=== PATIENT | male | born 1950 | race Caucasian/White ===

== ENCOUNTER 2021-06-19 07:06 | Day surgery (SDC) | payer MEDICARE ==
[~2021-06-19 07:06] MED LIST: ACETAMINOPHEN TAB 500 MG TAB PO PRN; DEXAMETHASONE SOD PHOSPHATE 4 MG/ML 1 ML VIAL IV ONE; HEPARIN SODIUM,PORCINE/PF 5,000 UNIT/0.5 ML SYRINGE SQ PRN; HYDROmorphone 0.5 MG/0.5 ML SYRINGE IVP PRN; LIDOCAINE 1% (10MG/ML) FOR IV START INTRADERMA PRN; ONDANSETRON 4 MG/2 ML VIAL IVP ONE
[2021-06-19 07:53] VITALS: RESP 16
[2021-06-19 08:01] LABS: Glucose,Whole Blood 101 mg/dL (75-99)
[2021-06-19] MEDS: LACTATED RINGERS 1,000 ML IV SCH ×2 (08:11→08:50)
--- NOTE | 2021-06-19 08:39 | P.GSHP ---
History of Present Illness H&P Date: 06/19/21 Chief Complaint: Incarcerated umbilical hernia 70-year-old male seen in the office in March for incarcerated umbilical hernia. Patient with mild pain. Hernia has gotten gradually larger. No nausea or vomiting. No change in bowel habits. Skin changes colors from red to light pink at times. Past Medical History Past Medical History: Coronary Artery Disease (CAD), Hyperlipidemia, Hypertension, Osteoarthritis (OA) Additional Past Medical History / Comment(s): NECK PAIN History of Any Multi-Drug Resistant Organisms: None Reported Past Surgical History: Coronary Bypass/CABG, Heart Catheterization Additional Past Surgical History / Comment(s): CABG- 1998, CATARACT SURGERY- RIGHT EYE Past Anesthesia/Blood Transfusion Reactions: No Reported Reaction Smoking Status: Former smoker - Past Family History Sister(s) Family Medical History: Cancer Brother(s) Family Medical History: Cancer Medications and Allergies Home Medications Medication Instructions Recorded Confirmed Type Aspirin 325 mg PO DAILY 06/14/21 06/19/21 History Atorvastatin [Lipitor] 40 mg PO HS 06/14/21 06/19/21 History Gabapentin [Neurontin] 300 mg PO HS 06/14/21 06/19/21 History Lisinopril [Zestril] 10 mg PO DAILY 06/14/21 06/19/21 History Metoprolol Tartrate [Lopressor] 50 mg PO BID 06/14/21 06/19/21 History Multivitamins, Thera [Multivitamin 1 tab PO DAILY 06/14/21 06/19/21 History (formulary)] Allergies Allergy/AdvReac Type Severity Reaction Status Date / Time bee venom protein (honey bee) Allergy Swelling, Verified 06/19/21 07:45 RASH Surgical - Exam Vital Signs Temp Pulse Resp BP Pulse Ox 97 F L 57 L 16 156/71 97 06/19/21 07:46 06/19/21 07:46 06/19/21 07:46 06/19/21 07:46 06/19/21 07:46 Physical exam: General: Well-developed, well-nourished HEENT: Normocephalic, sclerae nonicteric Abdomen: Nontender, nondistended, incarcerated umbilical hernia with slightly ischemic overlying umbilical skin, fascial defect not palpable Extremities: No edema Neuro: Alert and oriented Results - Labs Abnormal Lab Results - Last 24 Hours (Table) 06/19/21 Range/Units 07:59 POC Glucose (mg/dL) 101 H (75-99) mg/dL Assessment and Plan (1) Incarcerated umbilical hernia Narrative/Plan: Will proceed with repair incarcerated umbilical hernia with mesh. Risks of bleeding, infection, scarring, recurrence, bowel injury, adhesions, possible need for umbilectomy reviewed. He understands and wishes to proceed. Current Visit: Yes Status: Acute Code(s): K42.0 - UMBILICAL HERNIA WITH OBSTRUCTION, WITHOUT GANGRENE SNOMED Code(s): 952086317
[2021-06-19] MEDS ORDERED: ePHEDrine SULFATE/0.9% NACL/PF 50 MG/5 ML SYRINGE IV ONE (08:47)
[2021-06-19] MEDS ORDERED: PROPOFOL 10 MG/ML 20 ML VIAL IV ONE (08:47)
[2021-06-19] MEDS ORDERED: fentaNYL (PF) 50 MCG/ML 2 ML AMP ONE (08:47)
[2021-06-19] MEDS ORDERED: MIDAZOLAM 2 MG/2 ML VIAL ONE (08:47)
[2021-06-19] MEDS ORDERED: LIDOCAINE 1% INJ 10MG/ML (20 ML MDV) ONE (08:47)
[2021-06-19] MEDS ORDERED: BUPIVACAINE (PF) 0.25% 30 ML VIAL SQ ONE ×2 (09:23→09:45)
--- NOTE | 2021-06-19 10:04 | P.OP ---
Date of Procedure: 06/19/21 Procedure(s) Performed: PREOPERATIVE DIAGNOSIS: Incarcerated umbilical hernia POSTOPERATIVE DIAGNOSIS: Same PROCEDURE: Repair incarcerated umbilical hernia with mesh, partial omentectomy SURGEON: Dr. Awan ANESTHESIA: General OPERATIVE PROCEDURE DETAILS: The patient was placed in the operating table in t he supine position. A left sided periumbilical incision was made using the scalpel. The subcutaneous tissues were dissected bluntly and with cautery. The hernia sac was identified. The umbilical attachments to the fascia were divided using electrocautery. The hernia sac was opened. A large amount of omentum was present within the hernia sac. This could not be reduced. This was removed using the LigaSure device. I then closed the hernia sac. The hernia sac was then inverted. The preperitoneal space was dissected using blunt dissection and electrocautery. The 4.3 cm ventral ex mesh was placed beneath the fascia and sutured in place using trans-fascial 0 Ethibond sutures. The defect was closed using interrupted [id number] 0 Ethibond mattress sutures. The subcutaneous tissues were reapproximated using inverted 2-0 & 3-0 Vicryl sutures. The umbilicus was tacked back down to the fascia using a 2-0 Vicryl suture. The skin was closed using 4-0 Monocryl sutures. Skin glue and sterile dressings were then applied. HERNIA CHARACTERISTICS: Length: 2 cm Width: 2 cm Type: Umbilical TYPE OF MESH USED: Ventral ex or 0.3 cm LOCATION OF MESH: Sub-lay FIXATION: 2-0 Ethibond trans-fascial DISPOSITION: Stable to recovery room
[2021-06-19 10:06] VITALS: TEMP 98
[2021-06-19] MEDS ORDERED: KETOROLAC 15 MG/ML 1 ML VIAL ONE (10:33)
[2021-06-19] MEDS ORDERED: KETOROLAC 15 MG/ML 1 ML VIAL IVP ONE (10:36)
[2021-06-19 11:30] VITALS: PULSE 56
[2021-06-19 11:50] VITALS: BP 130/71
[2021-06-19] MEDS ORDERED: ACETAMINOPHEN TAB 325 MG TAB PO SCH (12:00)
[2021-06-19] MEDS ORDERED: IBUPROFEN 600 MG TAB PO SCH (13:00)
== END 2021-06-19 12:25 | disposition home or self-care (01) ==
LOC: OR 07:06
PROVIDERS: ATTEND Surgery
DX: K42.0 Umbilical hernia with obstruction, without gangrene (principal); Z87.891 Personal history of nicotine dependence; I25.10 Atherosclerotic heart disease of native coronary artery without angina pectoris; I10 Essential (primary) hypertension; E78.5 Hyperlipidemia, unspecified; Z79.899 Other long term (current) drug therapy; M50.30 Other cervical disc degeneration, unspecified cervical region; Z95.1 Presence of aortocoronary bypass graft; Z91.030 Bee allergy status; M19.90 Unspecified osteoarthritis, unspecified site; Z79.82 Long term (current) use of aspirin
CPT/HCPCS: 88302; 49587; C1781; J2250; J1100; J0690; J2405; J2001; J3010; J1885; J2704; J1170; J1644

== ENCOUNTER → 2022-05-29 | Outpatient (CLI) | payer OTHER ==
--- NOTE | 2022-05-29 12:26 | US ---
EXAMINATION TYPE: US duplex aorta DATE OF EXAM: 05/29/2022 COMPARISON: NONE CLINICAL HISTORY: Z89.891 HX OF TOBACCO USE. TECHNIQUE: Multiple sonographic images of the abdominal aorta are obtained. FINDINGS: EXAM MEASUREMENTS: Abdominal Aorta: Proximal: 2.5 x 2.5 cm Mid: 1.8 x 1.6 cm Distal: 1.7 x 1.5 cm Bifurcation: rt, 1.1 x 1.2 cm lt, 1.2 x 1.0 cm [employer] NOTES: Normal caliber aorta, heavily calcified. IMPRESSION: No evidence of abdominal aortic aneurysm.
== END | disposition home or self-care (01) ==
LOC: RADUSWWP 12:03
DX: Z87.891 Personal history of nicotine dependence (principal)
CPT/HCPCS: 93979

== ENCOUNTER 2023-09-25 14:18 | Day surgery (SDC) | payer MEDICARE, OTHER ==
[2023-09-18 11:18] VITALS: BMI 29.7
[~2023-09-25 14:18] MED LIST changes: -ACETAMINOPHEN TAB 500 MG TAB PO PRN; -DEXAMETHASONE SOD PHOSPHATE 4 MG/ML 1 ML VIAL IV ONE; -HEPARIN SODIUM,PORCINE/PF 5,000 UNIT/0.5 ML SYRINGE SQ PRN; -HYDROmorphone 0.5 MG/0.5 ML SYRINGE IVP PRN; +LACTATED RINGERS 1,000 ML IV SCH; +MOXIFLOXACIN HCL 0.5% DROPS 3 ML BTL OP PRN; -ONDANSETRON 4 MG/2 ML VIAL IVP ONE; +TETRACAINE 0.5% OPHTH (PF) DROPS 4 ML BTL OP PRN; +TIMOLOL 0.5% OPHTH DROPS 5 ML BTL OP PRN
[2023-09-25] MEDS: CYCLOPENTOLATE 1% OPHTH SOLN 2 ML BTL OP PRN ×3 (15:19→15:31)
[2023-09-25] MEDS: PHENYLEPHRINE 2.5% OPHTH DRP 2ML OP PRN ×3 (15:22→15:34)
[2023-09-25 15:44] VITALS: TEMP 97.6
[2023-09-25] MEDS ORDERED: fentaNYL (PF) 50 MCG/ML 2 ML AMP ONE (16:29)
[2023-09-25] MEDS ORDERED: MIDAZOLAM 2 MG/2 ML VIAL ONE (16:29)
[2023-09-25] MEDS ORDERED: BALANCED SALT IRRIG SOLN COMB2 15 ML IRRIG.SOLN INTRAOCULA ONE (16:43)
[2023-09-25] MEDS ORDERED: DUOVISC KIT (GREEN BOX) INTRAOCULA ONE (16:43)
[2023-09-25] MEDS ORDERED: LIDOCAINE 1% (PF) 10MG/ML VIAL MISCELLANE ONE (16:43)
[2023-09-25] MEDS ORDERED: EPINEPHrine (PF) 0.3 ML in BALANCED SALT IRRIG SOLN COMB2 500 ML IRRIGATION ONE (16:44)
--- NOTE | 2023-09-25 16:56 | P.OP ---
Date of Procedure: 09/25/23 Preoperative Diagnosis: NS & PSC Postoperative Diagnosis: same Procedure(s) Performed: PIOL, OS Implants: [id number] 18.50 Anesthesia: MAC Surgeon: Nawaf Duong Pathology: none sent Condition: stable Disposition: same day Indications for Procedure: blurry vision Operative Findings: no complications
[2023-09-25 17:10] VITALS: RESP 16
[2023-09-25 17:37] VITALS: BP 157/86; PULSE 54
--- NOTE | 2023-09-26 08:01 | OP ---
OPERATIVE REPORT DATE OF SERVICE : 09/25/2023 PREOPERATIVE DIAGNOSIS: Nuclear sclerosis, posterior subcapsular sclerosis. POSTOPERATIVE DIAGNOSIS: Nuclear sclerosis, left eye. OPERATION: Phacoemulsification of cataract and interocular lens implant, left eye. ESTIMATED BLOOD LOSS: Zero. SPECIMEN TAKEN: None. NARRATIVE: After obtaining the appropriate consent, the patient was brought to the operating room where the patient was placed under cardiac monitoring and prepped and draped in the usual sterile manner. At the 5 o'clock position, a 15-degree super sharp blade was used to create a paracentesis followed by instillation of 1% Xylocaine MPF 50:50 mix with BSS into the anterior chamber. This was followed by DuoVisc viscoelastic to stabilize the anterior chamber. At the 3 o'clock position a self-sealing corneal flap incision was created using 2.8 mm storm keratome. A cystotome was used to initiate a continuous tear capsulorrhexis which was completed with the Utrata forceps. A Binkhorst cannula was used to hydrodissect the lens nucleus followed by hydrodelineation. Phacoemulsification of the lens was performed utilizing phacochop in 35.6 seconds at 10% power. The remaining cortical material was removed using the irrigation aspiration mode followed by additional 1% Xylocaine MPF into the anterior chamber followed by viscoelastic to stabilize the capsular bag. A [employer]ch [employer] MX60E 18.5 diopters posterior chamber lens was placed into the capsular bag without difficulty. The remaining viscoelastic material was removed from the anterior chamber with the irrigation/aspiration. Balanced salt solution was used to normalize the intraocular pressure. The incision was checked for watertight integrity. The patient then received 2 drops of 0.5% timolol followed by 2 drops Vigamox, was lightly patched and shielded in the usual manner. There were no complications from the procedure. The patient tolerated the procedure well and was returned to recovery in good condition. MMODL / IJN: [id number] /
== END 2023-09-25 17:27 | disposition home or self-care (01) ==
LOC: OR 14:18
PROVIDERS: ATTEND Ophthalmology
DX: H25.12 Age-related nuclear cataract, left eye (principal); H25.042 Posterior subcapsular polar age-related cataract, left eye; I25.10 Atherosclerotic heart disease of native coronary artery without angina pectoris; I10 Essential (primary) hypertension; E78.5 Hyperlipidemia, unspecified; Z79.899 Other long term (current) drug therapy; Z98.890 Other specified postprocedural states
CPT/HCPCS: 66984; C1780; J2250; J0171; J3010; J2001

== ENCOUNTER 2023-10-28 15:26 | Emergency (ER) | payer MEDICARE ==
[2023-10-28 15:52] VITALS: TEMP 97.9
--- NOTE | 2023-10-28 16:00 | ED ---
General Adult HPI - General Chief complaint: Neuro Symptoms/Deficit Stated complaint: Weakness Time Seen by Provider: 10/28/23 15:35 Source: patient, RN notes reviewed, old records reviewed Mode of arrival: ambulatory Limitations: no limitations - History of Present Illness Initial comments: This is a 73-year-old male who presents emergency Department with a past medical history significant for hypertension and high cholesterol. Patient states today he was walking at home and then he felt like his left leg had fallen asleep it lasted for about 30 seconds and then it went away per patient states he has no other symptoms and he is at his baseline at this time. Patient states he has some arthritis in his neck but he's never had any lower back problems. Patient denies any pain patient denies any weakness. Patient stated no time was he unable to move or walk. Patient denies any visual disturbances patient denies headache patient denies any facial drooping or slurred speech. Patient states currently he feels asymptomatic - Related Data Home Medications Medication Instructions Recorded Confirmed Aspirin 325 mg PO DAILY 06/14/21 10/28/23 Atorvastatin [Lipitor] 40 mg PO DIRECTED 06/14/21 10/28/23 Gabapentin [Neurontin] 300 mg PO HS 06/14/21 10/28/23 Metoprolol Tartrate [Lopressor] 50 mg PO DIRECTED 06/14/21 10/28/23 Multivitamins, Thera [Multivitamin 1 tab PO DAILY 06/14/21 10/28/23 (formulary)] lisinopriL [Zestril] 10 mg PO DIRECTED 06/14/21 10/28/23 Ketorolac 0.5% Ophth Soln [Acular 1 drop LEFT EYE BID 10/28/23 10/28/23 0.5%] prednisoLONE ACETATE 1% OPHTH 1 drop BOTH EYES BID 10/28/23 10/28/23 [Pred Forte 1%] Allergies Allergy/AdvReac Type Severity Reaction Status Date / Time bee venom protein (honey bee) Allergy Swelling, Verified 10/28/23 16:33 RASH Review of Systems ROS Statement: Those systems with pertinent positive or pertinent negative responses have been documented in the HPI. ROS Other: All systems not noted in ROS Statement are negative. Past Medical History Past Medical History: Coronary Artery Disease (CAD), Hyperlipidemia, Hypertension, Osteoarthritis (OA) Additional Past Medical History / Comment(s): left cataract, NECK PAIN History of Any Multi-Drug Resistant Organisms: None Reported Past Surgical History: Coronary Bypass/CABG, Heart Catheterization Additional Past Surgical History / Comment(s): CABG- 1998, RT CATARACT SURGERY Past Anesthesia/Blood Transfusion Reactions: No Reported Reaction Past Psychological History: No Psychological Hx Reported Smoking Status: Former smoker - Past Family History Sister(s) Family Medical History: Cancer Brother(s) Family Medical History: Cancer General Exam - General Exam Comments Initial Comments: GENERAL: Patient is well-developed and well-nourished. Patient is nontoxic and well- hydrated and is in no acute distress. ENT: Neck is soft and supple. No significant lymphadenopathy is noted. Oropharynx is clear. Moist mucous membranes. Neck has full range of motion without eliciting any pain. EYES: The sclera were anicteric and conjunctiva were pink and moist. Extraocular movements were intact and pupils were equal round and reactive to light. Eyelids were unremarkable. PULMONARY: Unlabored respirations. Good breath sounds bilaterally. No audible rales rhonchi or wheezing was noted. CARDIOVASCULAR: There is a regular rate and rhythm without any murmurs gallops or rubs. Femoral pulses are equal bilaterally ABDOMEN: Soft and nontender with normal bowel sounds. No palpable organomegaly was noted. There is no palpable pulsatile mass. SKIN: Skin is clear with no lesions or rashes and otherwise unremarkable. NEUROLOGIC: Patient is alert and oriented x3. Cranial nerves II through XII are grossly intact. Motor and sensory are also intact. Normal speech, volume and content. Symmetrical smile. Patient's NIH is 0 MUSCULOSKELETAL: Normal extremities with adequate strength and full range of motion. No lower extremity swelling or edema. No calf tenderness. LYMPHATICS: No significant lymphadenopathy is noted PSYCHIATRIC: Normal psychiatric evaluation. Limitations: no limitations Course Vital Signs 10/28/23 10/28/23 15:34 15:50 Temperature 97.9 F Pulse Rate 62 66 Respiratory 16 20 Rate Blood Pressure 181/85 174/79 O2 Sat by Pulse 98 98 Oximetry Medical Decision Making - Medical Decision Making EKG is interpreted by myself. EKG shows a sinus rhythm at 63 bpm [place] interval 273 QRS is under 10 QT interval 390 QTC is 397. Patient's EKG shows some ST segment depression in precordial leads V4 V5 and V6 as well as leads 1 and 2 Was pt. sent in by a medical professional or institution (SIOBHAN Robles, BACK END ENGINEER, urgent care, hospital, or alf...) When possible be specific @ -No Did you speak to anyone other than the patient for history (EMS, parent, family, police, friend...)? What history was obtained from this source @ -No Did you review nursing and triage notes (agree or disagree)? Why? @ -I reviewed and agree with nursing and triage notes Were old charts reviewed (outside hosp., previous admission, EMS record, old EKG, old radiological studies, urgent care reports/EKG's, alf records)? Report findings @ -I reviewed prior charts prior lab work Differential Diagnosis (chest pain, altered mental status, abdominal pain women, abdominal pain men, vaginal bleeding, weakness, fever, dyspnea, syncope, headache, dizziness, GI bleed, back pain, seizure, CVA, palpatations, mental health, musculoskeletal)? @ -Differential CVA Ischemic stroke, hemorrhagic stroke, brain tumor, atypical migraine, Wernicke's encephalopathy, seizure, multiple sclerosis, meningitis, encephalitis, hypoglycemia, Guillain-Strickland, electrolytes disturbance, myasthenia gravis.... This is not meant to be an all-inclusive list EKG interpreted by me (3pts min.). @ -As above X-rays interpreted by me (1pt min.). @ -Chest x-ray shows no acute abnormality CT interpreted by me (1pt min.). @ -CT of the brain shows no acute abnormality U/S interpreted by me (1pt. min.). @ -None done What testing was considered but not performed or refused? (CT, X-rays, U/S, labs)? Why? @ -None What meds were considered but not given or refused? Why? @ -None Did you discuss the management of the patient with other professionals (professionals i.e. SIOBHAN Robles, BACK END ENGINEER, lab, RT, psych nurse, psychosocial rehabilitation counselor, director corporate security, teacher, customer service security officer, case supervisor)? Give summary @ -No Was smoking cessation discussed for >3mins.? @ -No Was critical care preformed (if so, how long)? @ -No Were there social determinants of health that impacted care today? How? (Homelessness, low income, unemployed, alcoholism, drug addiction, transportation, low edu. Level, literacy, decrease access to med. care, shelter, rehab)? @ -No Was there de-escalation of care discussed even if they declined (Discuss DNR or withdrawal of care, Hospice)? DNR status @ -No What co-morbidities impacted this encounter? (DM, HTN, Smoking, COPD, CAD, Cancer, CVA, ARF, Chemo, Hep., AIDS, mental health diagnosis, sleep apnea, morbid obesity)? @ -None Was patient admitted / discharged? Hospital course, mention meds given and route, prescriptions, significant lab abnormalities, going to OR and other pertinent info. @ -Patient's CAT scan x-ray and lab work were all within normal range. Patient remained a symptomatically throughout the ED stay. Patient will follow-up with his primary medical care doctor for further workup. Undiagnosed new problem with uncertain prognosis? @ -No Drug Therapy requiring intensive monitoring for toxicity (Heparin, Nitro, Insulin, Cardizem)? @ -No Were any procedures done? @ -No Diagnosis/symptom? @ -Paresthesias Acute, or Chronic, or Acute on Chronic? @ -Acute Uncomplicated (without systemic symptoms) or Complicated (systemic symptoms)? @ -Complicated Side effects of treatment? @ -No Exacerbation, Progression, or Severe Exacerbation? @ -No Poses a threat to life or bodily function? How? (Chest pain, USA, MD, pneumonia, PE, COPD, DKA, ARF, appy, cholecystitis, CVA, Diverticulitis, Homicidal, Suicidal, threat to staff... and all critical care pts) @ -No - Lab Data Result diagrams: 10/28/23 15:56 10/28/23 15:56 Lab Results 10/28/23 10/28/23 10/28/23 Range/Units 15:56 15:56 15:56 WBC 7.7 (3.8-10.6) k/uL RBC 4.82 (4.30-5.90) m/uL Hgb 14.7 (13.0-17.5) gm/dL Hct 44.1 (39.0-53.0) % MCV 91.5 (80.0-100.0) fL MCH 30.6 (25.0-35.0) pg MCHC 33.4 (31.0-37.0) g/dL RDW 12.6 (11.5-15.5) % Plt Count 148 L (150-450) k/uL MPV 7.8 Neutrophils % 64 % Lymphocytes % 25 % Monocytes % 7 % Eosinophils % 2 % Basophils % 0 % Neutrophils # 4.9 (1.3-7.7) k/uL Lymphocytes # 1.9 (1.0-4.8) k/uL Monocytes # 0.5 (0-1.0) k/uL Eosinophils # 0.1 (0-0.7) k/uL Basophils # 0.0 (0-0.2) k/uL Sodium 142 (137-145) mmol/L Potassium 3.9 (3.5-5.1) mmol/L Chloride 105 (98-107) mmol/L Carbon Dioxide 25 (22-30) mmol/L Anion Gap 12 mmol/L BUN 26 H (9-20) mg/dL Creatinine 1.17 (0.66-1.25) mg/dL Est GFR (CKD-EPI)AfAm 72 (>60 ml/min/1.73 sqM) Est GFR (CKD-EPI)NonAf 62 (>60 ml/min/1.73 sqM) Glucose 105 H (74-99) mg/dL Calcium 9.8 (8.4-10.2) mg/dL Total Bilirubin 0.6 (0.2-1.3) mg/dL AST 28 (17-59) U/L ALT 28 (4-49) U/L Alkaline Phosphatase 105 (38-126) U/L Troponin I 0.015 (0.000-0.034) ng/mL Total Protein 8.1 (6.3-8.2) g/dL Albumin 4.5 (3.5-5.0) g/dL Disposition Clinical Impression: Paresthesias, Degenerative disc disease Disposition: HOME SELF-CARE Instructions (If sedation given, give patient instructions): Paresthesia (ED), Ischemic Stroke (DC) Is patient prescribed a controlled substance at d/c from ED?: No Referrals: [facility],Clinic [Primary Care Provider] - 1-2 days Time of Disposition: 16:58
[2023-10-28 16:10] LABS: Basophils % (A) 0 %; Eosinophils # (A) 0.1 k/uL (0-0.7); Eosinophils % (A) 2 %; HCT 44.1 % (39.0-53.0); HGB 14.7 gm/dL (13.0-17.5); Lymphocytes # (A) 1.9 k/uL (1.0-4.8); Lymphocytes % (A) 25 %; MCH 30.6 pg (25.0-35.0); MCHC 33.4 g/dL (31.0-37.0); MCV 91.5 fL (80.0-100.0); Mean Platelet Volume 7.8; Monocytes # (A) 0.5 k/uL (0-1.0); Monocytes % (A) 7 %; Neutrophils # (A) 4.9 k/uL (1.3-7.7); Neutrophils % (A) 64 %; Platelet Count 148 k/uL (150-450); RBC 4.82 m/uL (4.30-5.90); RDW 12.6 % (11.5-15.5); WBC 7.7 k/uL (3.8-10.6)
--- NOTE | 2023-10-28 16:11 | XR ---
EXAMINATION TYPE: XR lumbosacral spine min 4V DATE OF EXAM: 10/28/2023 4:06 PM CLINICAL INDICATION:Male, 73 years old with history of Left leg numbness; [facility] COMPARISON: None TECHNIQUE: XR lumbosacral spine min 4V - Frontal, lateral , bilateral oblique and coned in L5-S1 late ral views of the spine. FINDINGS: No evidence of any acute osseous pathology. No evidence of loss of vertebral body height i s seen. There is normal alignment of the lumbar vertebral bodies. Mild scattered disc space narrowing . Multilevel marginal osteophyte formation throughout the visualized spine. There is facet joint arth ropathy throughout the spine. Scattered at least mild neural foraminal stenosis. IMPRESSION: 1. No acute fracture. 2. Mild multilevel disc degeneration.
--- NOTE | 2023-10-28 16:23 | CT ---
EXAMINATION TYPE: CT brain wo con CT DLP: 1142.1 mGycm, Automated exposure control for dose reduction was used. DATE OF EXAM: 10/28/2023 4:14 PM COMPARISON: None. CLINICAL INDICATION:Male, 73 years old with history of Neuro deficit, acute, stroke suspected, weakne ss TECHNIQUE: Brain: Axial CT images of the brain were obtained with coronal and sagittal reformats created and rev iewed. Contrast used: None. Oral contrast used: None. FINDINGS: Brain: Extra-axial spaces: No abnormal extra-axial fluid collections. Ventricular system: Dilatation in proportion to cerebral atrophy. Cerebral parenchyma: Cerebral atrophy. No acute intraparenchymal hemorrhage or mass effect. The caal -white junction is well differentiated. Scattered hypoattenuating areas are seen within the white mat ter. Cerebellum: Unremarkable. Mass effect: No evidence of midline shift. Intracranial vasculature: Atherosclerotic calcifications of the intracranial vessels. Soft tissues: Normal. Calvarium/osseous structures: No depressed skull fracture. Paranasal sinuses and mastoid air cells: Mild scattered paranasal sinus disease. Visualized orbits: Orbital contents are intact. IMPRESSION: 1. No acute intracranial process. 2. Nonspecific white matter changes, likely secondary to chronic small vessel ischemic disease.
[2023-10-28 16:31] LABS: ALT 28 U/L (4-49); AST 28 U/L (17-59); African American GFR (CKD) 72 (>60 ml/min/1.73 sqM); Albumin 4.5 g/dL (3.5-5.0); Alkaline Phosphatase 105 U/L (38-126); Anion Gap 12 mmol/L; Blood Urea Nitrogen 26 mg/dL (9-20); Calcium 9.8 mg/dL (8.4-10.2); Carbon Dioxide 25 mmol/L (22-30); Chloride 105 mmol/L (98-107); Glucose 105 mg/dL (74-99); Non-African American GFR(CKD) 62 (>60 ml/min/1.73 sqM); Potassium 3.9 mmol/L (3.5-5.1); Sodium 142 mmol/L (137-145); Total Bilirubin 0.6 mg/dL (0.2-1.3); Total Protein 8.1 g/dL (6.3-8.2)
[2023-10-28 17:21] VITALS: BP 136/78; PULSE 80; RESP 18
== END 2023-10-28 17:18 | disposition home or self-care (01) ==
LOC: EC 15:26
DX: M51.36 Other intervertebral disc degeneration, lumbar region (principal); R20.2 Paresthesia of skin; I10 Essential (primary) hypertension; I25.10 Atherosclerotic heart disease of native coronary artery without angina pectoris; E78.5 Hyperlipidemia, unspecified; M19.90 Unspecified osteoarthritis, unspecified site; Z79.82 Long term (current) use of aspirin; Z79.899 Other long term (current) drug therapy; Z79.1 Long term (current) use of non-steroidal anti-inflammatories (NSAID); Z87.891 Personal history of nicotine dependence; Z91.030 Bee allergy status; Z95.1 Presence of aortocoronary bypass graft
CPT/HCPCS: 36415; 70450; 72110; 80053; 84484; 85025; 93005; 99285

== ENCOUNTER 2023-11-17 12:28 | Emergency (ER) | payer MEDICARE, OTHER ==
[2023-11-17 12:40] VITALS: TEMP 98.6
[2023-11-17 12:54] LABS: Basophils % (A) 1 %; Eosinophils # (A) 0.2 k/uL (0-0.7); Eosinophils % (A) 2 %; HCT 42.1 % (39.0-53.0); HGB 14.3 gm/dL (13.0-17.5); Lymphocytes # (A) 1.7 k/uL (1.0-4.8); Lymphocytes % (A) 25 %; MCH 30.7 pg (25.0-35.0); MCV 90.4 fL (80.0-100.0); Mean Platelet Volume 7.9; Monocytes # (A) 0.4 k/uL (0-1.0); Monocytes % (A) 6 %; Neutrophils # (A) 4.4 k/uL (1.3-7.7); Neutrophils % (A) 65 %; Platelet Count 130 k/uL (150-450); RBC 4.66 m/uL (4.30-5.90); RDW 12.4 % (11.5-15.5); WBC 6.7 k/uL (3.8-10.6)
--- NOTE | 2023-11-17 12:54 | XR ---
EXAMINATION TYPE: XR chest 2V DATE OF EXAM: 11/17/2023 COMPARISON: None HISTORY: Weakness TECHNIQUE: Frontal and lateral views of the chest are obtained. FINDINGS: There is an prior CABG surgery. Heart size is normal the pulmonary vasculature is not congested. The lungs are clear and there is no abnormal airspace/consolidative capacity or interstitial opacity. There is no pleural effusion or pneumothorax. No focal osseous lesions are seen. IMPRESSION: 1. CABG surgery. 2. No acute cardiopulmonary disease.
[2023-11-17 13:02] LABS: Partial Thromboplastin Time 25.3 sec (22.0-30.0); Prothrombin Time 11.4 sec (10.0-12.5)
[2023-11-17 13:07] LABS: ALT 29 U/L (4-49); AST 27 U/L (17-59); African American GFR (CKD) 76 (>60 ml/min/1.73 sqM); Albumin 4.3 g/dL (3.5-5.0); Alkaline Phosphatase 97 U/L (38-126); Anion Gap 10 mmol/L; Blood Urea Nitrogen 23 mg/dL (9-20); Calcium 9.4 mg/dL (8.4-10.2); Carbon Dioxide 25 mmol/L (22-30); Chloride 105 mmol/L (98-107); Glucose 132 mg/dL (74-99); Non-African American GFR(CKD) 66 (>60 ml/min/1.73 sqM); Potassium 3.8 mmol/L (3.5-5.1); Sodium 140 mmol/L (137-145); Total Bilirubin 0.8 mg/dL (0.2-1.3); Total Protein 7.5 g/dL (6.3-8.2)
--- NOTE | 2023-11-17 13:23 | ED ---
General Adult HPI - General Chief complaint: Weakness Stated complaint: high blood pressure Time Seen by Provider: 11/17/23 13:06 Source: patient, family Mode of arrival: ambulatory Limitations: no limitations - History of Present Illness Initial comments: This patient is 73-year-old man who presents with complaint that his blood pressure is high. The patient has history of hypertension, taking lisinopril and metoprolol. He states he has been compliant with his medications. Patient's states that he has been feeling generalized weakness and fatigue this morning and so they checked his blood pressure. They do not regularly check blood pressures. Blood pressure was high and when it was rechecked it kept going up. Patient denies having focal neurologic symptoms. No headache. No change in sensory function. Onset/Timin -: days(s) Severity scale (1-10): 0 Consistency: constant Improves with: none Worsens with: none Associated Symptoms: weakness Treatments Prior to Arrival: none - Related Data Home Medications Medication Instructions Recorded Confirmed Aspirin 325 mg PO DAILY 06/14/21 10/28/23 Atorvastatin [Lipitor] 40 mg PO DIRECTED 06/14/21 10/28/23 Gabapentin [Neurontin] 300 mg PO HS 06/14/21 10/28/23 Metoprolol Tartrate [Lopressor] 50 mg PO DIRECTED 06/14/21 10/28/23 Multivitamins, Thera [Multivitamin 1 tab PO DAILY 06/14/21 10/28/23 (formulary)] lisinopriL [Zestril] 10 mg PO DIRECTED 06/14/21 10/28/23 Ketorolac 0.5% Ophth Soln [Acular 1 drop LEFT EYE BID 10/28/23 10/28/23 0.5%] prednisoLONE ACETATE 1% OPHTH 1 drop BOTH EYES BID 10/28/23 10/28/23 [Pred Forte 1%] Allergies Allergy/AdvReac Type Severity Reaction Status Date / Time bee venom protein (honey bee) Allergy Swelling, Verified 10/28/23 16:33 RASH Review of Systems ROS Statement: Those systems with pertinent positive or pertinent negative responses have been documented in the HPI. ROS Other: All systems not noted in ROS Statement are negative. Constitutional: Reports: weakness. Denies: fever, chills Eyes: Denies: vision change ENT: Denies: hearing loss Respiratory: Denies: cough, dyspnea Cardiovascular: Denies: chest pain, palpitations, orthopnea, syncope Gastrointestinal: Denies: abdominal pain, nausea, vomiting Genitourinary: Denies: dysuria, hematuria Musculoskeletal: Denies: back pain Skin: Denies: rash Neurological: Denies: headache, weakness, numbness, paresthesias, confusion Past Medical History Past Medical History: Coronary Artery Disease (CAD), Hyperlipidemia, Hyp ertension, Osteoarthritis (OA) Additional Past Medical History / Comment(s): left cataract, NECK PAIN History of Any Multi-Drug Resistant Organisms: None Reported Past Surgical History: Coronary Bypass/CABG, Heart Catheterization Additional Past Surgical History / Comment(s): CABG- 1998, [facility] CATARACT SURGERY Past Anesthesia/Blood Transfusion Reactions: No Reported Reaction Past Psychological History: No Psychological Hx Reported Smoking Status: Former smoker - Past Family History Sister(s) Family Medical History: Cancer Brother(s) Family Medical History: Cancer General Exam Limitations: no limitations General appearance: alert, in no apparent distress Head exam: Present: atraumatic, normocephalic Eye exam: Present: normal appearance. Absent: scleral icterus, conjunctival injection ENT exam: Present: normal oropharynx Neck exam: Present: normal inspection Respiratory exam: Present: normal lung sounds bilaterally. Absent: respiratory distress, wheezes, rales, rhonchi, stridor Cardiovascular Exam: Present: regular rate, normal rhythm, normal heart sounds. Absent: systolic murmur, diastolic murmur, rubs, gallop GI/Abdominal exam: Present: soft. Absent: distended, tenderness, guarding, rebound, rigid, mass Extremities exam: Present: normal inspection, normal capillary refill. Absent: pedal edema, calf tenderness Back exam: Present: normal inspection. Absent: CVA tenderness (R), CVA tenderness (L) Neurological exam: Present: alert, oriented X3, CN II-XII intact. Absent: motor sensory deficit Skin exam: Present: warm, dry, intact, normal color. Absent: rash Course Vital Signs 11/17/23 11/17/23 11/17/23 12:30 13:35 13:38 Temperature 98.6 F Pulse Rate 56 L 57 L 60 Respiratory 16 20 12 Rate Blood Pressure 203/80 152/76 152/76 O2 Sat by Pulse 97 98 97 Oximetry 01/11/17/23 11/17/23 14:00 14:30 15:00 Temperature Pulse Rate 56 L 54 L 54 L Respiratory 11 L 10 L 12 Rate Blood Pressure 149/70 140/64 151/70 O2 Sat by Pulse 96 97 96 Oximetry 11/17/23 11/17/23 11/17/23 15:30 16:00 16:42 Temperature 98.6 F Pulse Rate 51 L Respiratory 12 Rate Blood Pressure 150/74 139/65 O2 Sat by Pulse 97 98 Oximetry EKG Findings - EKG Comments: EKG Findings:: There are inferior ST segment depression that are present on the comparison ECG. - EKG Results: EKG: interpreted by ERMD, sinus rhythm EKG shows: bradycardia Medical Decision Making - Medical Decision Making The patient had chest x-ray which I interpreted as negative for acute infiltrate, pneumothorax, congestive heart failure Was pt. sent in by a medical professional or institution (, PA, ENGINEERING TECHNOLOGY INSTRUCTOR, urgent care, hospital, or snf...) When possible be specific @ -[No] Did you speak to anyone other than the patient for history (EMS, parent, family, police, friend...)? What history was obtained from this source @ -[No] Did you review nursing and triage notes (agree or disagree)? Why? @ -[I reviewed and agree with nursing and triage notes] Were old charts reviewed (outside hosp., previous admission, EMS record, old EKG, old radiological studies, urgent care reports/EKG's, snf records)? Report findings @ -[No old charts were reviewed] Differential Diagnosis (chest pain, altered mental status, abdominal pain women, abdominal pain men, vaginal bleeding, weakness, fever, dyspnea, syncope, headache, dizziness, GI bleed, back pain, seizure, CVA, palpatations, mental health, musculoskeletal)? @ -[Differential Weakness: Hypoglycemia, shock, sepsis, hyponatremia, anemia, infection, NV, ETOH, adverse medicine reaction, overdose, stroke, this is not meant to be an all-inclusive list. EKG interpreted by me (3pts min.). @ -[Interpreted As above] X-rays interpreted by me (1pt min.). @ -[I interpreted as above CT interpreted by me (1pt min.). @ -[None done] U/S interpreted by me (1pt. min.). @ -[None done] What testing was considered but not performed or refused? (CT, X-rays, U/S, labs)? Why? @ -[None] What meds were considered but not given or refused? Why? @ -[None] Did you discuss the management of the patient with other professionals (professionals i.e. , PA, ENGINEERING TECHNOLOGY INSTRUCTOR, lab, RT, psych nurse, dialysis social worker, assistant professor of geography, teacher, sewage reticulation drafting officer, case resource manager)? Give summary @ -[No] Was smoking cessation discussed for >3mins.? @ -[No] Was critical care preformed (if so, how long)? @ -[No] Were there social determinants of health that impacted care today? How? (Homelessness, low income, unemployed, alcoholism, drug addiction, transportation, low edu. Level, literacy, decrease access to med. care, mcc, rehab)? @ -[No] Was there de-escalation of care discussed even if they declined (Discuss DNR or withdrawal of care, Hospice)? DNR status @ -[No] What co-morbidities impacted this encounter? (DM, HTN, Smoking, COPD, CAD, Cancer, CVA, ARF, Chemo, Hep., AIDS, mental health diagnosis, sleep apnea, morbid obesity)? @ -[None] Was patient admitted / discharged? Hospital course, mention meds given and rout e, prescriptions, significant lab abnormalities, going to OR and other pertinent info. @ -Patient is 73-year-old man presenting to have evaluation for some mild generalized weakness and also for elevated blood pressure. The physical exam and workup are consistent with mild dehydration. Patient is given fluids and is feeling better here in emergency department. We discussed appropriate further care and follow-up as well as return parameters. Undiagnosed new problem with uncertain prognosis? @ -[No] Drug Therapy requiring intensive monitoring for toxicity (Heparin, Nitro, Insulin, Cardizem)? @ -[No] Were any procedures done? @ -[No] Diagnosis/symptom? @ -[Acute hypertension Mild dehydration Acute, or Chronic, or Acute on Chronic? @ -[Acute Uncomplicated (without systemic symptoms) or Complicated (systemic symptoms)? @ -[Uncomplicated Side effects of treatment? @ -[No] Exacerbation, Progression, or Severe Exacerbation? @ -[No] Poses a threat to life or bodily function? How? (Chest pain, USA, NV, pneumonia, PE, COPD, DKA, ARF, appy, cholecystitis, CVA, Diverticulitis, Homicidal, Suicidal, threat to staff... and all critical care pts) @ -[No] - Lab Data Result diagrams: 11/17/23 12:30 11/17/23 12:30 Lab Results 11/17/23 11/17/23 11/17/23 Range/Units 12:30 12:30 12:30 WBC 6.7 (3.8-10.6) k/uL RBC 4.66 (4.30-5.90) m/uL Hgb 14.3 (13.0-17.5) gm/dL Hct 42.1 (39.0-53.0) % MCV 90.4 (80.0-100.0) fL MCH 30.7 (25.0-35.0) pg MCHC 34.0 (31.0-37.0) g/dL RDW 12.4 (11.5-15.5) % Plt Count 130 L (150-450) k/uL MPV 7.9 Neutrophils % 65 % Lymphocytes % 25 % Monocytes % 6 % Eosinophils % 2 % Basophils % 1 % Neutrophils # 4.4 (1.3-7.7) k/uL Lymphocytes # 1.7 (1.0-4.8) k/uL Monocytes # 0.4 (0-1.0) k/uL Eosinophils # 0.2 (0-0.7) k/uL Basophils # 0.0 (0-0.2) k/uL PT 11.4 (10.0-12.5) sec INR 1.0 (<1.2) APTT 25.3 (22.0-30.0) sec Sodium 140 (137-145) mmol/L Potassium 3.8 (3.5-5.1) mmol/L Chloride 105 (98-107) mmol/L Carbon Dioxide 25 (22-30) mmol/L Anion Gap 10 mmol/L BUN 23 H (9-20) mg/dL Creatinine 1.12 (0.66-1.25) mg/dL Est GFR (CKD-EPI)AfAm 76 (>60 ml/min/1.73 sqM) Est GFR (CKD-EPI)NonAf 66 (>60 ml/min/1.73 sqM) Glucose 132 H (74-99) mg/dL Calcium 9.4 (8.4-10.2) mg/dL Total Bilirubin 0.8 (0.2-1.3) mg/dL AST 27 (17-59) U/L ALT 29 (4-49) U/L Alkaline Phosphatase 97 (38-126) U/L Troponin I (0.000-0.034) ng/mL Total Protein 7.5 (6.3-8.2) g/dL Albumin 4.3 (3.5-5.0) g/dL 11/17/23 Range/Units 12:30 WBC (3.8-10.6) k/uL RBC (4.30-5.90) m/uL Hgb (13.0-17.5) gm/dL Hct (39.0-53.0) % MCV (80.0-100.0) fL MCH (25.0-35.0) pg MCHC (31.0-37.0) g/dL RDW (11.5-15.5) % Plt Count (150-450) k/uL MPV Neutrophils % % Lymphocytes % % Monocytes % % Eosinophils % % Basophils % % Neutrophils # (1.3-7.7) k/uL Lymphocytes # (1.0-4.8) k/uL Monocytes # (0-1.0) k/uL Eosinophils # (0-0.7) k/uL Basophils # (0-0.2) k/uL PT (10.0-12.5) sec INR (<1.2) APTT (22.0-30.0) sec Sodium (137-145) mmol/L Potassium (3.5-5.1) mmol/L Chloride (98-107) mmol/L Carbon Dioxide (22-30) mmol/L Anion Gap mmol/L BUN (9-20) mg/dL Creatinine (0.66-1.25) mg/dL Est GFR (CKD-EPI)AfAm (>60 ml/min/1.73 sqM) Est GFR (CKD-EPI)NonAf (>60 ml/min/1.73 sqM) Glucose (74-99) mg/dL Calcium (8.4-10.2) mg/dL Total Bilirubin (0.2-1.3) mg/dL AST (17-59) U/L ALT (4-49) U/L Alkaline Phosphatase (38-126) U/L Troponin I <0.012 (0.000-0.034) ng/mL Total Protein (6.3-8.2) g/dL Albumin (3.5-5.0) g/dL Disposition Clinical Impression: Hypertension Disposition: HOME SELF-CARE Condition: Good Instructions (If sedation given, give patient instructions): Hypertension (ED) Is patient prescribed a controlled substance at d/c from ED?: No Referrals: [facility],Clinic [Primary Care Provider] - 1-2 days
[2023-11-17] MEDS ORDERED: cloNIDine HCL 0.2 MG TAB PO STA (13:25)
[2023-11-17] MEDS ORDERED: SODIUM CHLORIDE 0.9% 500 ML 500 ML IV STA (14:05)
[2023-11-17 16:07] VITALS: BP 139/65; PULSE 51; RESP 12
== END 2023-11-17 16:46 | disposition home or self-care (01) ==
LOC: EC 12:28
DX: I10 Essential (primary) hypertension (principal); I25.10 Atherosclerotic heart disease of native coronary artery without angina pectoris; E78.5 Hyperlipidemia, unspecified; M19.90 Unspecified osteoarthritis, unspecified site; Z79.1 Long term (current) use of non-steroidal anti-inflammatories (NSAID); Z79.82 Long term (current) use of aspirin; Z79.899 Other long term (current) drug therapy; Z87.891 Personal history of nicotine dependence; Z91.030 Bee allergy status; Z95.1 Presence of aortocoronary bypass graft
CPT/HCPCS: 36415; 71046; 80053; 84484; 85025; 85610; 85730; 93005; 96360; 99285

== ENCOUNTER 2024-01-01 08:54 | Day surgery (SDC) | payer MEDICARE, OTHER ==
[~2024-01-01 08:54] MED LIST changes: +ALPRAZolam 0.25 MG TAB PO PRN; +ALPRAZolam 0.5 MG TAB PO PRN; +ASPIRIN 325 MG TAB PO STA; +ATORVASTATIN 80 MG TAB PO STA; +HEPARIN SODIUM,PORCINE (1 ML) 2,500 UNIT in SODIUM CHLORIDE 0.9% 250 ML IRRIGATION PRN; +HEPARIN SODIUM,PORCINE 10,000 UNIT in SODIUM CHLORIDE 0.9% 1,000 ML IRRIGATION PRN; -LACTATED RINGERS 1,000 ML IV SCH; -LIDOCAINE 1% (10MG/ML) FOR IV START INTRADERMA PRN; -MOXIFLOXACIN HCL 0.5% DROPS 3 ML BTL OP PRN; +NITROGLYCERIN SL TABS 0.4 MG TAB SUBLINGUAL PRN; +SODIUM CHLORIDE 0.9% 1,000 ML in EMPTY BAG 1 BAG IV SCH; -TETRACAINE 0.5% OPHTH (PF) DROPS 4 ML BTL OP PRN; -TIMOLOL 0.5% OPHTH DROPS 5 ML BTL OP PRN
[2024-01-01] MEDS: SODIUM CHLORIDE 0.9% 1,000 ML IV ONE (09:04)
[2024-01-01 09:53] VITALS: RESP 16; TEMP 98.1
[2024-01-01] MEDS: HYDROcodone/APAP 7.5-325MG 1 EACH TAB PO ONE (13:31)
[2024-01-01] MEDS: MIDAZOLAM 2 MG/2 ML VIAL IVP ONE ×2 (13:55→13:59)
[2024-01-01] MEDS: fentaNYL (PF) 50 MCG/1 ML VIAL IVP ONE (13:55)
[2024-01-01] MEDS: HEPARIN SODIUM 1,000 UN/ML (10ML VL) IVP ONE (14:19)
[2024-01-01] MEDS: IOPAMIDOL-370 100ML BTL INTRATHECA ONE (15:13)
[2024-01-01] MEDS ORDERED: RX INFO: IV CONTRAST WAS GIVEN 1 EACH MISC MISCELLANE PRN (15:42)
--- NOTE | 2024-01-01 15:42 | P.CARDCATH ---
Date of Procedure: 01/01/24 Description of Procedure: DIAGNOSTIC CORONARY ANGIOGRAPHY and LEFT HEART CATH REPORT PROCEDURES PERFORMED: Left heart catheterization Selective coronary angiography SVG graft injection JONES graft injection Ascending aortogram Moderate conscious sedation 68 mins Ultrasound assisted left radial access Attempted ultrasound assisted right common femoral access but failed due to heavy calcification. INDICATION: Substernal chest pain, dyspnea on exertion and abnormal stress test. 73-year-old with past medical history of CABG in 1998 at [facility]. He has not seen a associate quality engineer in more than 10 years. He presented to cardiology clinic with dyspnea on exertion and substernal chest heaviness symptoms mostly with exertion. For this he had a nuclear stress test done which showed inferior inferolateral wall reversible perfusion defect. For this he was scheduled for an outpatient heart catheterization. CONSENT: I have explained the procedural steps of above-mentioned procedures in layman's terms to the patient. I discussed the risks (including but not limited to stroke, emergent vascular or cardiac surgery or ), benefits and alternative therapies for the above-mentioned procedure. I discussed the risks of sedation/analgesia and blood product administration (if indicated). The patient has indicated understanding and acceptance of these risks. Conscious Sedation: Patient's ECG, heart rate, blood pressure, pulse oximetry were monitored throughout the duration of procedure under my direct supervision. [2] mg Versed and [50] mg Fentanyl were used for induction of moderate conscious sedation. Total duration of moderate concious sedation 68 minutes. PROCEDURE: After explaining the risks, benefits and alternatives of the above mentioned procedures in detail to the patient, informed consent was obtained. Patient was taken to the catheterization lab, prepped and draped in usual sterile fashion using universal precuations. Barbow and sima test were performed to confirm adequate perfusion to fingers. Ultrasound was used to identify the right common femoral artery. There was significant calcification noticed in the artery. 1% lidocaine was infiltrated over the right common femoral artery. A micropuncture needle was utilized to obtain the access. Using micropuncture needle we had very poor backflow and due to heavy calcification, we decided not to proceed with femoral access. No sheath was advanced in the femoral artery. Ultrasound was utilized to identify the left common femoral artery. Left common femoral artery was also heavily calcified so we decided not to proceed with left common femoral access. Ultrasound was used to identify the left radial artery. 1% lidocaine was infiltrated over the left radial artery. A 6-Korean sheath was placed and secured in the left radial artery using modified Seldinger technique. The sheath was flushed and 5 mg verapamil was administered intra-arterially. J tipped wire was advanced under fluoroscopic guidance. Once the wire tip reached aortic root 4500 units of IV heparin was given. Over the wire a JL 4 diagnostic catheter was advanced. The wire was removed and the catheter was flushed. The catheter was manipulated to selectively engage the left coronary ostium. Left coronary angiogram was performed in different angiographic projections. This catheter was exchanged over the wire for a JR4 diagnostic catheter. The wire was removed and the catheter was flushed. Catheter was manipulated to selectively engage the right coronary ostium. Right coronary angiogram was performed. The catheter was manipulated to disengage from the right coronary ostium and engage the SVG graft. SVG graft angiogram was performed. The catheter was manipulated to look for any other grafts from the aortic root and ascending aorta. We were not able to find any further grafts. The catheter was manipulated to enter the left subclavian artery and then manipulated to selectively engage the JONES artery. JONES artery was engaged and selective angiogram was performed in different angiographic injections. The catheter was disengaged from JONES artery and the wire was advanced to the ascending aorta. The catheter was exchanged for a pigtail catheter. The pigtail catheter was flushed. A power injector was used at the setting of 15 mL/s for 30 mL. Aortic root angiogram was performed to look for any missed grafts. The pigtail catheter was removed over the wire. Radial sheath was flushed. The radial sheath was removed and a TR band was placed with excellent patent hemostasis was achieved. The patient tolerated the procedure well. Patient was transported back to the post catheterization holding area in stable condition. Angiographic images were reviewed in detail. HEMODYNAMICS: Aortic Pressure: 140/50 mmHg. LV pressure: 142/5 mmHg. LVEDP 20 mmHg. There was no significant gradient across the aortic valve. Left subclavian pressures 154 /61 mmHg SELECTIVE CORONARY ARTERIOGRAPHY: LEFT MAIN: The left main is a large caliber vessel which trifurcates into the LAD, Ramus and circumflex. Left main appears angiographically normal. RAMUS INTERMEDIUS: Ostial and proximal ramus has 80 to 90% disease. Ramus is a small vessel with 2 mm caliber. LEFT ANTERIOR DESCENDING CORONARY ARTERY: LAD is 100% occluded at the ostium. Distal LAD is supplied by JONES graft with good distal runoff. Distal LAD supplies the apex and give filling collaterals to fill diagonal branches retrogradely. LEFT CIRCUMFLEX CORONARY ARTERY: It is co-dominant vessel. Left circumflex is large caliber. Proximal and mid LCx has mild luminal irregularities in 20% range. It gives rise to a small caliber OM1 and OM 2 which has severe calcific disease. LCx gives rise to bridging collaterals which fills the PDA and PL branches and fills the RCA retrogradely. RIGHT CORONARY ARTERY: 100% occluded in proximal segment. RCA fills retrogradely from left to right bridging collaterals. Bypass grafts SVG to PDA: 100% occluded JONES to LAD: Widely patent with good distal runoff. There is no retrograde flow in proximal and LAD. IMPRESSION: 1. 100% ostial LAD, 100% proximal RCA stenosis 2. 80 to 90% proximal ramus disease but small caliber vessel not amenable for intervention 3. Mild diffuse disease in LCx. Diffuse OM disease but small caliber vessels. 4. Left to right bridging from LCx collaterals filling the PDA and RCA retrogradely 5. Patent JONES to LAD with good distal runoff 6. 100% occluded SVG to PDA PLAN: Aggressive risk factor modification per most recent ACC/AHA guidelines. 100 cc fluids for 4 hours Discharge home in 4 hours Continue all medications Which includes aspirin 81 mg atorvastatin 40 mg, metoprolol 50 mg, lisinopril hydrochlorothiazide 20/25 mg, amlodipine 5 mg. Add Imdur 15 mg daily Follow-up in the office in 1-2 weeks. Performing Physician Claude Garcia MD, FACC, RPVI Thank you for allowing [facility] to participate in this patient's care. Feel free to reach out in case of any followup questions.
[2024-01-01] MEDS ORDERED: SODIUM CHLORIDE 0.9% 1,000 ML IV SCH (15:45)
[2024-01-01 18:32] VITALS: BP 139/69; PULSE 57
== END 2024-01-01 18:03 | disposition home or self-care (01) ==
LOC: CATHCVL 08:54
PROVIDERS: ATTEND Student in an Organized Health Care Education/Training Program
DX: I25.10 Atherosclerotic heart disease of native coronary artery without angina pectoris (principal); I10 Essential (primary) hypertension; E78.5 Hyperlipidemia, unspecified; Z79.82 Long term (current) use of aspirin; Z79.899 Other long term (current) drug therapy
CPT/HCPCS: 93459; 93567; 76937; 99152; 99153 ×3; C1769 ×2; C1894 ×2; J2250; J1644; Q9967; J3010

== ENCOUNTER → 2024-02-05 | Outpatient (CLI) | payer OTHER ==
[2024-02-05 13:10] LABS: African American GFR (CKD) 82 (>60 ml/min/1.73 sqM); Blood Urea Nitrogen 24 mg/dL (9-20); Non-African American GFR(CKD) 71 (>60 ml/min/1.73 sqM)
--- NOTE | 2024-02-05 18:11 | CT ---
EXAMINATION TYPE: CT angio neck DATE OF EXAM: 02/05/2024 HISTORY: CAROTID STENOSIS SCREENING COMPARISON: None CT DLP: 430.60 mGycm. Automated Exposure Control for Dose Reduction was Utilized. TECHNIQUE: CTA scan of the neck is performed with IV Contrast, patient injected with 80ml mL of Isov ue 370, axial images are obtained, coronal and sagittal reformatted images are reviewed. Three-D amol nstructed images are created on an independent workstation and reviewed. Source images are reviewed. FINDINGS: Carotid/Vascular Structures: There is a 3 vessel arch. Common carotid arteries bifurcate into internal and external carotid arteries. There is severe stenos is of 87% at the origin of the right internal carotid artery due to calcification. There is moderate stenosis in the proximal left internal carotid artery of 58%. Vertebral arteries are codominant. Internal carotid arteries and vertebral arteries are patent to the skull base. Other: Dense coronary present. Facet hypertrophy is present within the cervical spine. IMPRESSION: 1. Severe stenosis of 87% right internal carotid artery origin and moderate stenosis left proximal in ternal carotid artery. NASCET criteria was used in interpretation of this exam?
== END | disposition home or self-care (01) ==
LOC: RADCTMAIN 12:15
PROVIDERS: ATTEND Surgery
DX: I65.23 Occlusion and stenosis of bilateral carotid arteries (principal)
CPT/HCPCS: 82565; 84520; 70498; 36415; Q9967

== ENCOUNTER 2024-03-08 21:58 | Emergency (ER) | payer OTHER ==
[2024-03-08 22:23] VITALS: BP 163/81; PULSE 63; RESP 18; TEMP 98.2
--- NOTE | 2024-03-08 22:37 | ED ---
General Adult HPI - General Chief complaint: Upper Respiratory Infection Stated complaint: Medicaton rxn-Coughing blood Time Seen by Provider: 03/08/24 22:19 Source: patient Mode of arrival: ambulatory Limitations: no limitations - History of Present Illness Initial comments: This patient is a 73-year-old man who presents to have evaluation after he had expectorated some blood. The patient states that he on 2 occasions had tried to clear his chest, he then coughed and noticed that there were some small streaks of blood in the sputum. He states that he is concerned because he had recently started on Plavix. The patient is otherwise denying any respiratory or chest symptoms. He denies congestion or cough. No sore throat. No dyspnea or chest pain. Patient denies any other symptoms suggestive of anemia. No palpitations, orthostatic symptoms, no lightheadedness, syncope. Onset/Timin -: days(s) Location: chest Severity scale (1-10): 0 Improves with: none Worsens with: none Associated Symptoms: cough Treatments Prior to Arrival: other (Plavix) - Related Data Home Medications Medication Instructions Recorded Confirmed Atorvastatin [Lipitor] 40 mg PO HS 06/14/21 03/20/24 Multivitamins, Thera [Multivitamin 1 tab PO DAILY 06/14/21 03/20/24 (formulary)] Clopidogrel [Plavix] 75 mg PO DAILY 03/17/24 03/20/24 Gabapentin [Neurontin] 300 mg PO HS 03/17/24 03/20/24 Aspirin EC [Ecotrin Low Dose] 81 mg PO DAILY 03/20/24 03/20/24 PARoxetine HCL [Paxil] 10 mg PO DAILY 03/20/24 03/20/24 Previous Rx's Medication Instructions Recorded Tamsulosin [Flomax] 0.4 mg PO DAILY #60 cap 03/20/24 Allergies Allergy/AdvReac Type Severity Reaction Status Date / Time bee venom protein (honey bee) Allergy Swelling, Verified 03/17/24 13:30 RASH Review of Systems ROS Statement: Those systems with pertinent positive or pertinent negative responses have been documented in the HPI. ROS Other: All systems not noted in ROS Statement are negative. Constitutional: Denies: fever, chills, weakness Respiratory: Reports: hemoptysis. Denies: cough, dyspnea Cardiovascular: Denies: chest pain, palpitations, edema Gastrointestinal: Denies: abdominal pain, vomiting, melena, hematochezia Musculoskeletal: Denies: back pain Skin: Denies: rash Neurological: Denies: headache, weakness Past Medical History Past Medical History: Coronary Artery Disease (CAD), Hyperlipidemia, Hypertension, Osteoarthritis (OA) Additional Past Medical History / Comment(s): NECK PAIN , See Dr Garcia's H & P History of Any Multi-Drug Resistant Organisms: None Reported Past Surgical History: Coronary Bypass/CABG, Heart Catheterization, Hernia Repair Additional Past Surgical History / Comment(s): CABG- 1998, barry CATARACT SURGERY, umbilical hernia repair Past Anesthesia/Blood Transfusion Reactions: No Reported Reaction Past Psychological History: Anxiety Smoking Status: Former smoker Past Alcohol Use History: Rare Past Drug Use History: None Reported - Past Family History Sister(s) Family Medical History: Cancer Brother(s) Family Medical History: Cancer General Exam Limitations: no limitations General appearance: alert, in no apparent distress Head exam: Present: atraumatic, normocephalic Eye exam: Present: normal appearance. Absent: scleral icterus, conjunctival injection ENT exam: Present: normal oropharynx, mucous membranes moist Neck exam: Present: normal inspection Respiratory exam: Present: normal lung sounds bilaterally. Absent: respiratory distress, wheezes, rales, rhonchi, stridor, accessory muscle use Cardiovascular Exam: Present: regular rate, normal rhythm, normal heart sounds. Absent: systolic murmur, diastolic murmur, rubs, gallop GI/Abdominal exam: Present: soft. Absent: tenderness, guarding, rebound Extremities exam: Present: normal inspection, normal capillary refill. Absent: pedal edema, calf tenderness Back exam: Present: normal inspection. Absent: CVA tenderness (R), CVA tenderness (L) Neurological exam: Present: alert Skin exam: Present: warm, dry, intact, normal color. Absent: rash Course Vital Signs 03/08/24 22:13 Temperature 98.2 F Pulse Rate 63 Respiratory 18 Rate Blood Pressure 163/81 O2 Sat by Pulse 95 Oximetry Medical Decision Making - Medical Decision Making The patient had chest x-ray which I interpreted as negative for acute infiltrate, pneumothorax, congestive heart failure Was pt. sent in by a medical professional or institution (, PA, STATUE MAKER, urgent care, hospital, or alf...) When possible be specific @ -[No] Did you speak to anyone other than the patient for history (EMS, parent, family, police, friend...)? What history was obtained from this source @ -[No] Did you review nursing and triage notes (agree or disagree)? Why? @ -[I reviewed and agree with nursing and triage notes] Were old charts reviewed (outside hosp., previous admission, EMS record, old EKG, old radiological studies, urgent care reports/EKG's, alf records)? Report findings @ -[No old charts were reviewed] Differential Diagnosis (chest pain, altered mental status, abdominal pain women, abdominal pain men, vaginal bleeding, weakness, fever, dyspnea, syncope, headache, dizziness, GI bleed, back pain, seizure, CVA, palpatations, mental health, musculoskeletal)? @ -[Differential hemoptysis: Acute bronchitis, pneumonia, sinusitis, epistaxis, intraoral bleeding, this is not meant to be an all-inclusive list. EKG interpreted by me (3pts min.). @ -[As above] X-rays interpreted by me (1pt min.). @ -I interpreted as above CT interpreted by me (1pt min.). @ -[None done] U/S interpreted by me (1pt. min.). @ -[None done] What testing was considered but not performed or refused? (CT, X-rays, U/S, labs)? Why? @ -[None] What meds were considered but not given or refused? Why? @ -[None] Did you discuss the management of the patient with other professionals (professionals i.e. , PA, STATUE MAKER, lab, RT, psych nurse, social welfare research worker, trimming inspector, teacher, precinct commanding officer, case liner)? Give summary @ -[No] Was smoking cessation discussed for >3mins.? @ -[No] Was critical care preformed (if so, how long)? @ -[No] Were there social determinants of health that impacted care today? How? (Homelessness, low income, unemployed, alcoholism, drug addiction, transportation, low edu. Level, literacy, decrease access to med. care, detention, rehab)? @ -[No] Was there de-escalation of care discussed even if they declined (Discuss DNR or withdrawal of care, Hospice)? DNR status @ -[No] What co-morbidities impacted this encounter? (DM, HTN, Smoking, COPD, CAD, Cancer, CVA, ARF, Chemo, Hep., AIDS, mental health diagnosis, sleep apnea, morbid obesity)? @ -[Plavix use due to coronary artery disease Was patient admitted / discharged? Hospital course, mention meds given and route, prescriptions, significant lab abnormalities, going to OR and other pertinent info. @ -[Patient is a 73-year-old man with small amount of hemoptysis after starting Plavix. The patient not having other symptoms. His chest x-ray does not reveal any concerning findings. The patient not having any symptoms or signs of anemia. At this point the patient would like to go home. He is going to hold the Plavix for a day and then resume. We discussed appropriate further care and follow-up as well as return parameters. Undiagnosed new problem with uncertain prognosis? @ -[No] Drug Therapy requiring intensive monitoring for toxicity (Heparin, Nitro, Insulin, Cardizem)? @ -[No] Were any procedures done? @ -[No] Diagnosis/symptom? @ -Acute hemoptysis Acute, or Chronic, or Acute on Chronic? @ -[Acute Uncomplicated (without systemic symptoms) or Complicated (systemic symptoms)? @ -[Uncomplicated Side effects of treatment? @ -[No] Exacerbation, Progression, or Severe Exacerbation? @ -[No] Poses a threat to life or bodily function? How? (Chest pain, [place], [place], pneumonia, PE, COPD, DKA, ARF, appy, cholecystitis, CVA, Diverticulitis, Homicidal, Suicidal, threat to staff... and all critical care pts) @ -[No] Disposition Clinical Impression: Hemoptysis Disposition: HOME SELF-CARE Condition: Good Instructions (If sedation given, give patient instructions): Coughing Up Blood (Hemoptysis) (ED) Is patient prescribed a controlled substance at d/c from ED?: No Referrals: [facility],Clinic [Primary Care Provider] - 1-2 days
--- NOTE | 2024-03-08 23:55 | XR ---
EXAM: XR Chest, 2 Views CLINICAL HISTORY: ITS.REASON XR Reason: cough TECHNIQUE: Frontal and lateral views of the chest. COMPARISON: CXR November 17, 2023 FINDINGS: Lungs: Unremarkable. No consolidation. Pleural space: Unremarkable. No pneumothorax. Heart: Cardiomegaly. Mediastinum: Unremarkable. Normal mediastinal contour. Bones/joints: Sternotomy wires. No acute fracture. IMPRESSION: No acute findings in the chest.
== END 2024-03-08 23:00 | disposition home or self-care (01) ==
LOC: EC 21:58
DX: R04.2 Hemoptysis (principal); Z91.030 Bee allergy status; Z87.891 Personal history of nicotine dependence
CPT/HCPCS: 71046; 99283

== ENCOUNTER 2024-03-19 08:02 | Inpatient (IN) | payer OTHER ==
[2024-03-17 14:27] VITALS: BMI 30.7
[~2024-03-19 08:02] MED LIST changes: -ALPRAZolam 0.25 MG TAB PO PRN; -ALPRAZolam 0.5 MG TAB PO PRN; -ASPIRIN 325 MG TAB PO STA; +ASPIRIN 81 MG PO PRN; -ATORVASTATIN 80 MG TAB PO STA; +CLOPIDOGREL 75 MG TAB PO PRN; -HEPARIN SODIUM,PORCINE (1 ML) 2,500 UNIT in SODIUM CHLORIDE 0.9% 250 ML IRRIGATION PRN; -HEPARIN SODIUM,PORCINE 10,000 UNIT in SODIUM CHLORIDE 0.9% 1,000 ML IRRIGATION PRN; +PRASUGREL 10 MG TAB PO PRN; +SODIUM CHLORIDE 0.9% 1,000 ML in EMPTY BAG 1 BAG IV ONE; -SODIUM CHLORIDE 0.9% 1,000 ML in EMPTY BAG 1 BAG IV SCH; +TICAGRELOR 90 MG TAB PO PRN
[2024-03-19] MEDS: IV FLUID CONTINUATION 1,000 ML IV ONE (08:24)
[2024-03-19] MEDS: SODIUM CHLORIDE 0.9% 1,000 ML in EMPTY BAG 1 BAG IV ONE (08:24)
[2024-03-19] MEDS ORDERED: RX INFO: IV CONTRAST WAS GIVEN 1 EACH MISC MISCELLANE PRN (09:00)
[2024-03-19] MEDS ORDERED: LIDOCAINE 1% INJ 10MG/ML (20 ML MDV) ONE (10:11)
[2024-03-19] MEDS ORDERED: HEPARIN SODIUM,PORCINE 10,000 UNIT/ML 1 ML VIAL ONE (10:32)
[2024-03-19] MEDS ORDERED: PROTAMINE SULFATE 10 MG/ML 5 ML VIAL ONE (10:32)
[2024-03-19] MEDS ORDERED: GLYCOPYRROLATE 0.2 MG/ML 2 ML VIAL ONE (10:32)
[2024-03-19] MEDS ORDERED: ePHEDrine 50 MG/ML 1 ML VIAL ONE (10:32)
[2024-03-19] MEDS ORDERED: fentaNYL (PF) 50 MCG/ML 2 ML AMP ONE (10:32)
[2024-03-19] MEDS: LACTATED RINGERS 1,000 ML IV ONE (10:46)
[2024-03-19] MEDS: THROMBIN (BOVINE) 5,000 UNIT VIAL TOPICAL ONE (10:57)
[2024-03-19] MEDS: ceFAZolin 2 GM in SODIUM CHLORIDE 0.9% 500 ML 500 ML IRRIGATION ONE (10:57)
[2024-03-19] MEDS: IOPAMIDOL-250 100ML BTL INTRAARTER ONE (11:48)
--- NOTE | 2024-03-19 12:06 | P.OP ---
Date of Procedure: 03/19/24 Description of Procedure: Preoperative diagnosis: Asymptomatic high-grade right internal carotid artery stenosis Postoperative diagnosis: Same Procedure: Right transcarotid artery revascularization with stenting. Right common femoral vein central venous catheter placement under ultrasound guidance Surgeon: Melissa Li DO Specialty Molder: Yesica Anesthesia: Conscious sedation Complications: None Condition: Stable Flow reversal time: 11 minutes Lesion length: 20 mm Indication for procedure: Patient is a 73-year-old male with severe coronary artery disease and high-grade right internal carotid artery stenosis who was worked up and evaluated for this and through shared decision making plan on going forward with a transcarotid artery revascularization and stent. Risks and benefits were discussed. He seemingly understood and was willing to proceed. Operative narrative: After written and informed consent was obtained the patient risks benefits and competitions were described the patient was brought to the [employer] and laid in a supine position. The area of the neck and groins were prepped and draped in usual sterile fashion after appropriate anesthetic was performed per the anesthesiologist. A timeout was performed in normal fashion and antibiotics were administered prior to incision. Utilizing ultrasound the right common carotid artery was located and a transverse incision was created overlying this area after proper anesthetization. Dissection was carried between the sternocleidomastoid musculature down to the carotid sheath. The sheath was then incised and the common carotid artery was located and dissected free in a circumferential manner and controlled with umbilical tape. Once controlled, attention was placed down to the common femoral vein and utilizing ultrasound the vein was cannulated and the 8-Greenlandic sheath was placed in normal fashion. Attention was then placed back to the carotid artery and the patient was administered heparin and followed with ACTs and redosed as needed for ACT above 250. A pursestring suture was then placed at the common carotid artery with 5-0 Prolene and utilizing a micropuncture needle the common carotid artery was accessed and wire was placed followed by a 4-Greenlandic sheath. Carotid angiogram was then obtained demonstrating significant stenosis in the internal carotid artery. Stiff wire was then placed followed by the 8 [place]ic [place] sheath. Flow reversal was then established with the enroute [employer] SERVICES INSTRU[employer] system after patient's blood pressure was increased to above 160, heart rate above 60 and ACT above 250. 014 wire was then placed across the lesion followed by a 5.5 x 30 mm Rice balloon and balloon angioplasty was performed followed by an 9 x 30 mm Silkroad stent. Postdilatation was performed and final angiogram was obtained demonstrating significant improvement of the stenosis. All guidewires and catheters were removed and the sheath was removed and the arteriotomy was secured with the previously placed pursestring suture. Hemostasis was assured with Gelfoam and thrombin. The area was irrigated and closed. The platysma was closed with 3-0 Vicryl. The skin was closed with running 4-0 Monocryl in subcuticular fashionThe femoral sheath was also removed and pressure was held for hemostasis. The patient all procedure well and was moving all extremities and following commands. The patient was then sent to PACU for recovery.
[2024-03-19] MEDS: PHENYLEPHRINE 10 MG/ML VIAL IM ONE (12:32)
[2024-03-19] MEDS: PHENYLEPHRINE 10 MG/ML VIAL IV ONE ×3 (12:32→13:14)
--- NOTE | 2024-03-19 12:45 | IR ---
EXAMINATION TYPE: IR stent intravas non coronary Intraoperative/procedural fluoroscopic services were provided. CLINICAL INDICATION:Male, 73 years old with history of Rt carotid stenosis, 5.3m/36.6DAP, RT neck A s uture Rt Gr; , [facility] Total fluoroscopy time is 5.3 min. DAP: 0.97 Gycm2 Please see the operative/procedural note for further details.
[2024-03-19] MEDS: PHENYLEPHRINE 40 MG in SODIUM CHLORIDE 0.9% 250 ML IV SCH (13:31)
[2024-03-19] MEDS: PSEUDOEPHEDRINE 30 MG TAB PO SCH (13:54)
[2024-03-19 15:16] LABS: Glucose,Whole Blood 102 mg/dL (70-110)
[2024-03-19] MEDS: LACTATED RINGERS 1,000 ML IV SCH (15:58)
[2024-03-19 17:32] LABS: HCT 37.7 % (39.0-53.0); HGB 12.4 gm/dL (13.0-17.5); MCH 30.9 pg (25.0-35.0); MCHC 32.9 g/dL (31.0-37.0); MCV 93.9 fL (80.0-100.0); Mean Platelet Volume 7.6; Platelet Count 136 k/uL (150-450); RBC 4.02 m/uL (4.30-5.90); RDW 12.6 % (11.5-15.5); WBC 8.3 k/uL (3.8-10.6)
[2024-03-19 17:46] LABS: African American GFR (CKD) >90 (>60 ml/min/1.73 sqM); Anion Gap 5 mmol/L; Blood Urea Nitrogen 26 mg/dL (9-20); Calcium 8.8 mg/dL (8.4-10.2); Carbon Dioxide 23 mmol/L (22-30); Chloride 108 mmol/L (98-107); Glucose 140 mg/dL (74-99); Non-African American GFR(CKD) 86 (>60 ml/min/1.73 sqM); Potassium 4.1 mmol/L (3.5-5.1); Sodium 136 mmol/L (137-145)
[2024-03-19 18:24] LABS: Band Neutrophils % 1 %; Eosinophils # (M) 0.17 k/uL (0-0.7); Lymphocytes # (M) 1.41 k/uL (1.0-4.8); Monocytes # (M) 0.75 k/uL (0-1.0); Neutrophils % (M) 71 %; Nucleated Red Blood Cells 0 /100 WBC (0-0); Total Cells Counted 100
[2024-03-19] MEDS: ATORVASTATIN 40 MG TAB PO SCH (20:59)
[2024-03-19] MEDS: GABAPENTIN 300 MG CAP PO SCH (22:26)
[2024-03-20 05:14] LABS: Basophils % (A) 0 %; Eosinophils # (A) 0.1 k/uL (0-0.7); Eosinophils % (A) 2 %; HCT 36.8 % (39.0-53.0); HGB 12.3 gm/dL (13.0-17.5); Lymphocytes # (A) 1.4 k/uL (1.0-4.8); Lymphocytes % (A) 18 %; MCH 30.7 pg (25.0-35.0); MCHC 33.5 g/dL (31.0-37.0); MCV 91.5 fL (80.0-100.0); Mean Platelet Volume 8.5; Monocytes # (A) 0.7 k/uL (0-1.0); Monocytes % (A) 9 %; Neutrophils # (A) 5.4 k/uL (1.3-7.7); Neutrophils % (A) 69 %; Platelet Count 146 k/uL (150-450); RBC 4.02 m/uL (4.30-5.90); RDW 12.8 % (11.5-15.5); WBC 7.9 k/uL (3.8-10.6)
[2024-03-20 05:35] LABS: African American GFR (CKD) >90 (>60 ml/min/1.73 sqM); Anion Gap 6 mmol/L; Blood Urea Nitrogen 21 mg/dL (9-20); Calcium 9.4 mg/dL (8.4-10.2); Carbon Dioxide 25 mmol/L (22-30); Chloride 107 mmol/L (98-107); Glucose 110 mg/dL (74-99); Non-African American GFR(CKD) 84 (>60 ml/min/1.73 sqM); Potassium 3.8 mmol/L (3.5-5.1); Sodium 138 mmol/L (137-145)
[2024-03-20] MEDS ORDERED: Potassium Replacement Protocol 1 EACH MISC MISCELLANE PRN (05:47)
[2024-03-20] MEDS: POTASSIUM CHLORIDE ER 20 MEQ TAB.ER PO SCH (06:49)
[2024-03-20] MEDS: CLOPIDOGREL 75 MG TAB PO SCH (08:47)
[2024-03-20] MEDS: ASPIRIN 81 MG PO SCH (08:48)
[2024-03-20] MEDS: PARoxetine 10 MG TAB PO SCH (08:48)
--- NOTE | 2024-03-20 10:29 | P.DS ---
Providers Date of admission: 03/19/24 08:02 Attending physician: Melissa Li DO Consults: 03/19/24 14:15 Consult Physician Routine Consulting Provider: Sang Ortez Consult Reason/Comments: med mgmnt, post carotid stent Do you want consulting provider notified?: Yes 03/20/24 09:23 Consult Physician Routine Consulting Provider: Ronan Cantor Consult Reason/Comments: Urinary retention Do you want consulting provider notified?: Yes Primary care physician: [facility] Hospital Course: Patient is a 73-year-old male who presented to the hospital on 03/19/2024 for a right transcarotid artery stent. He tolerated the procedure well and in the postoperative period did require medication for blood pressure control. He has been maintained in the ICU overnight. Through the night he did have a Li catheter inserted due to urinary retention. Today he is doing well without any complaints or concerns. He has no issues with unilateral weakness or further strokelike symptoms. He is found to be in satisfactory condition for potential discharge home pending medication adjustments and trial void. Discharge instructions are given. Patient Condition at Discharge: Good Plan - Discharge Summary Discharge Rx Participant: No New Discharge Prescriptions: No Action Multivitamins, Thera [Multivitamin (formulary)] 1 tab PO DAILY Aspirin EC [Ecotrin Low Dose] 81 mg PO DAILY Isosorbide Mononitrate ER [Imdur] 15 mg PO DAILY Atorvastatin [Lipitor] 40 mg PO HS Metoprolol Succinate (ER) [Toprol XL] 50 mg PO BID Clopidogrel [Plavix] 75 mg PO DAILY lisinopriL [Zestril] 40 mg PO DAILY Gabapentin [Neurontin] 300 mg PO HS hydroCHLOROthiazide [Hydrodiuril] 25 mg PO DAILY PARoxetine HCL [Paxil] 10 mg PO DAILY amLODIPine [Norvasc] 5 mg PO DAILY Discharge Medication List Atorvastatin [Lipitor] 40 mg PO HS 06/14/21 [History] Multivitamins, Thera [Multivitamin (formulary)] 1 tab PO DAILY 06/14/21 [History] Metoprolol Succinate (ER) [Toprol XL] 50 mg PO BID 12/30/23 [History] Clopidogrel [Plavix] 75 mg PO DAILY 03/17/24 [History] Gabapentin [Neurontin] 300 mg PO HS 03/17/24 [History] lisinopriL [Zestril] 40 mg PO DAILY 03/17/24 [History] Aspirin EC [Ecotrin Low Dose] 81 mg PO DAILY 03/20/24 [History] Isosorbide Mononitrate ER [Imdur] 15 mg PO DAILY 03/20/24 [History] PARoxetine HCL [Paxil] 10 mg PO DAILY 03/20/24 [History] amLODIPine [Norvasc] 5 mg PO DAILY 03/20/24 [History] hydroCHLOROthiazide [Hydrodiuril] 25 mg PO DAILY 03/20/24 [History] Follow up Appointment(s)/Referral(s): Melissa Li DO [STAFF PHYSICIAN] - 1 Week (OFFICE WILL CAll WITH APPOINTMENT.) Patient Instructions/Handouts: Carotid Artery Disease (DC), Moderate Sedation (DC), Carotid Artery Stent Placement (DC) Activity/Diet/Wound Care/Special Instructions: No strenuous activity or heavy lifting greater than 10 pounds. May shower tomorrow but no tub bathing or soaking. No driving for 1 to 2 weeks. Watch incision site for infection including redness, drainage, or temperature greater than 100.4. If you notice any of these symptoms please call office Discharge Disposition: HOME SELF-CARE
[2024-03-20 11:02] VITALS: BP 144/48
[2024-03-20] MEDS: TAMSULOSIN 0.4 MG CAP.ER.24H PO SCH (11:10)
--- NOTE | 2024-03-20 12:43 | P.CONS ---
History of Present Illness - Reason for Consult Consult date: 03/20/24 - History of Present Illness Patient is a 73-year-old male with history of hypertension, dyslipidemia, anxiety/depression, DM presenting for elective right transcarotid artery stent. [facility] physicians consulted for medical management. Denies any chest pain, shortness of breath, abdominal pain, nausea, vomiting, urinary or bowel complaints. Seen in the ICU, patient on phenylephrine, slightly bradycardic. Laboratory workup shows hemoglobin of 12.3, platelet 146, sodium 138, potassium 3.8, creatinine 0.91 blood glucose at 110. Patient unable to void, Li catheter in place. Pertinent positives and negatives as discussed in HPI, a complete review of systems was performed and all other systems are negative. Patient seen and examined at bedside. Vital signs reviewed General: nontoxic, no distress, appears at stated age Derm: warm, dry Head: atraumatic, normocephalic, symmetric Eyes: EOMI, no lid lag, anicteric sclera, pupils equal round reactive to light ENT: Nose and ears atraumatic Neck: No thyromegaly, supple Mouth: no lip lesion, mucus membranes moist Cardiovascular: S1S2 reg, no murmur, no edema Lungs: clear to auscultation bilateral, no rhonchi, no rales, no wheeze, no accessory muscle use Abdominal: soft, nontender to palpation, no guarding, no appreciable organomegaly Ext: no gross muscle atrophy, muscle strength muscle strength 5 out of 5 in all 4 extremities, no contractures Neuro: CN II-XII grossly intact Psych: Alert, oriented, appropriate affect Assessment/Plan: Status post right transcarotid artery stent Dyslipidemia -Continue aspirin, statin, Plavix -Discussed management with vascular surgery, likely to be discharged today Acute urinary retention -Status post Li catheter placement -Started on Flomax 0.4 mg daily -Urology consulted Neuropathy -Continue gabapentin 300 mg nightly Depression/anxiety -Continue paroxetine 10 mg daily History of hypertension -Currently bradycardic and hypotensive due to carotid stent placement -Hold all antihypertensives and beta-tammie -Follow-up outpatient with PCP Thank you for allowing us to participate in the care of this pleasant patient. Do not hesitate to contact us with questions. Someone can be reached from the [facility] hospitalist group all hours of the day at [phone] or via Xyo. Past Medical History Past Medical History: Coronary Artery Disease (CAD), Hyperlipidemia, Hypertension, Osteoarthritis (OA), Prostate Disorder, Skin Disorder Additional Past Medical History / Comment(s): "Oct 28, 2023 elevated BP, went to ER, said to contact loan documents closer." "Rt carotid 87% blocked."NECK PAIN arthritis, enlarged prostate. "I went to the ER (03-08-24) coughing up blood." "I had blood in my sputum.""The ER told me that it's a common occurabce when first starting Plavix." History of Any Multi-Drug Resistant Organisms: None Reported Past Surgical History: Coronary Bypass/CABG, Heart Catheterization, Hernia Repair Additional Past Surgical History / Comment(s): CABG- quad bypass-1998, [facility] CATARACT SURGERY, umbilical hernia repair Past Anesthesia/Blood Transfusion Reactions: No Reported Reaction Additional Past Anesthesia/Blood Transfusion Reaction / Comm: No hx of blood transfusion. Smoking Status: Former smoker - Past Family History Sister(s) Family Medical History: Cancer Additional Family Medical History / Comment(s): lung cancer Brother(s) Family Medical History: Cancer Additional Family Medical History / Comment(s): prostate cancer Medications and Allergies Home Medications Medication Instructions Recorded Confirmed Type Atorvastatin [Lipitor] 40 mg PO HS 06/14/21 03/20/24 History Multivitamins, Thera [Multivitamin 1 tab PO DAILY 06/14/21 03/20/24 History (formulary)] Clopidogrel [Plavix] 75 mg PO DAILY 03/17/24 03/20/24 History Gabapentin [Neurontin] 300 mg PO HS 03/17/24 03/20/24 History Aspirin EC [Ecotrin Low Dose] 81 mg PO DAILY 03/20/24 03/20/24 History PARoxetine HCL [Paxil] 10 mg PO DAILY 03/20/24 03/20/24 History [facility]ul[facility] [[facility] 03/20/24 Rx Allergies Allergy/AdvReac Type Severity Reaction Status Date / Time bee venom protein (honey bee) Allergy Swelling, Verified 03/17/24 13:30 RASH Physical Exam Vitals: Vital Signs Temp Pulse Pulse Pulse Pulse Resp BP 03/20/24 12:15 52 L 16 03/20/24 12:00 98.2 F 54 L 51 L 21 05/24/24 11:45 53 L 17 03/20/24 11:30 52 L 15 03/20/24 11:15 50 L 16 03/20/24 11:00 52 L 16 03/20/24 10:45 52 L 18 03/20/24 10:30 49 L 18 03/20/24 10:15 51 L 13 03/20/24 10:00 98.0 F 52 L 54 L 54 L 18 03/20/24 09:45 48 L 13 03/20/24 09:30 47 L 15 03/20/24 09:15 47 L 18 03/20/24 09:00 50 L 12 03/20/24 08:45 50 L 18 03/20/24 08:30 48 L 11 L 03/20/24 08:15 45 L 14 03/20/24 08:00 98.0 F 47 L 51 L 15 03/20/24 07:45 47 L 18 03/20/24 07:30 47 L 13 03/20/24 07:15 50 L 12 03/20/24 07:00 45 L 11 L 03/20/24 06:45 46 L 15 03/20/24 06:30 48 L 18 03/20/24 06:15 49 L 17 03/20/24 06:00 46 L 18 03/20/24 05:45 45 L 11 L 119/66 03/20/24 05:30 52 L 19 119/66 03/20/24 05:15 51 L 7 L 119/66 03/20/24 05:00 47 L 14 119/03/20/24 04:45 51 L 13 03/20/24 04:30 55 L 15 03/20/24 04:15 54 L 19 03/20/24 04:00 46 L 20 03/20/24 03:45 53 L 11 L 03/20/24 03:30 45 L 20 03/20/24 03:15 45 L 18 03/20/24 03:00 58 L 18 03/20/24 02:45 43 L 11 L 03/20/24 02:30 47 L 12 03/20/24 02:15 57 L 18 03/20/24 02:00 44 L 18 03/20/24 01:45 45 L 18 03/20/24 01:30 45 L 15 03/20/24 01:15 46 L 17 03/20/24 01:00 45 L 12 03/20/24 00:45 54 L 14 03/20/24 00:31 46 L 18 03/20/24 00:30 46 L 17 03/20/24 00:15 60 20 03/20/24 00:00 97.8 F 46 L 53 L 18 03/19/24 23:45 46 L 14 03/19/24 23:30 63 25 H 03/19/24 23:15 46 L 17 03/19/24 23:00 46 L 19 03/19/24 22:45 45 L 19 03/19/24 22:30 45 L 13 03/19/24 22:15 48 L 16 03/19/24 22:00 49 L 18 119/6 03/19/24 21:45 48 L 19 03/19/24 21:30 44 L 12 03/19/24 21:15 46 L 13 03/19/24 21:00 42 L 11 L 03/19/24 20:45 46 L 15 03/19/24 20:30 47 L 14 03/19/24 20:15 53 L 22 03/19/24 20:00 52 L 53 L 18 03/19/24 19:45 98.7 F 56 L 10 L 119/66 03/19/24 19:30 59 L 16 03/19/24 19:00 60 11 L 03/19/24 18:45 50 L 18 03/19/24 18:30 51 L 14 03/19/24 18:15 54 L 12 03/19/24 18:00 53 L 12 03/19/24 17:45 49 L 15 03/19/24 17:30 51 L 23 03/19/24 17:15 54 L 26 H 03/19/24 17:00 51 L 14 03/19/24 16:45 53 L 17 03/19/24 16:30 48 L 17 03/19/24 16:15 48 L 14 03/19/24 16:00 53 L 14 03/19/24 15:50 51 L 13 03/19/24 15:40 50 L 15 03/19/24 15:30 49 L 12 03/19/24 15:20 97.4 F L 50 L 119/66 03/19/24 15:00 53 L 18 03/19/24 14:28 52 L 18 03/19/24 14:13 55 L 18 03/19/24 13:58 54 L 18 03/19/24 13:43 53 L 18 03/19/24 13:28 49 L 18 03/19/24 13:13 51 L 18 03/19/24 12:58 53 L 18 BP BP Pulse Ox 03/20/24 12:15 96 03/20/24 12:00 96 03/20/24 11:45 97 03/20/24 11:30 95 03/20/24 11:15 96 03/20/24 11:00 96 03/20/24 10:45 95 03/20/24 10:30 97 03/20/24 10:15 96 03/20/24 10:00 144/48 95 03/20/24 09:45 95 03/20/24 09:30 95 03/20/24 09:15 95 03/20/24 09:00 95 03/20/24 08:45 96 03/20/24 08:30 95 03/20/24 08:15 95 03/20/24 08:00 94 L 03/20/24 07:45 95 03/20/24 07:30 95 03/20/24 07:15 95 03/20/24 07:00 95 03/20/24 06:45 93 L 03/20/24 06:30 92 L 03/20/24 06:15 92 L 03/20/24 06:00 93 L 03/20/24 05:45 96 03/20/24 05:30 96 03/20/24 05:15 96 03/20/24 05:00 95 03/20/24 04:45 97 03/20/24 04:30 95 03/20/24 04:15 96 03/20/24 04:00 96 03/20/24 03:45 97 03/20/24 03:30 93 L 03/20/24 03:15 92 L 03/20/24 03:00 93 L 03/20/24 02:45 96 03/20/24 02:30 95 03/20/24 02:15 95 03/20/24 02:00 94 L 03/20/24 01:45 93 L 03/20/24 01:30 95 03/20/24 01:15 93 L 03/20/24 01:00 95 03/20/24 00:45 94 L 03/20/24 00:31 94 L 03/20/24 00:30 94 L 03/20/24 00:15 93 L 03/20/24 00:00 93 L 03/19/24 23:45 95 03/19/24 23:30 92 L 03/19/24 23:15 91 L 03/19/24 23:00 92 L 03/19/24 22:45 93 L 03/19/24 22:30 95 03/19/24 22:15 95 03/19/24 22:00 98 03/19/24 21:45 98 03/19/24 21:30 96 03/19/24 21:15 97 03/19/24 21:00 98 03/19/24 20:45 98 03/19/24 20:30 98 03/19/24 20:15 96 03/19/24 20:00 94 L 03/19/24 19:45 97 03/19/24 19:30 93 L 03/19/24 19:00 97 03/19/24 18:45 94 L 03/19/24 18:30 94 L 03/19/24 18:15 95 03/19/24 18:00 96 03/19/24 17:45 95 03/19/24 17:30 96 03/19/24 17:15 97 03/19/24 17:00 96 03/19/24 16:45 96 03/19/24 16:30 95 03/19/24 16:15 96 03/19/24 16:00 96 03/19/24 15:50 95 03/19/24 15:40 96 03/19/24 15:30 95 03/19/24 15:20 96 03/19/24 15:00 119/53 95 03/19/24 14:28 115/49 95 03/19/24 14:13 144/56 97 03/19/24 13:58 139/55 96 03/19/24 13:43 157/60 97 03/19/24 13:28 129/64 98 03/19/24 13:13 114/55 98 03/19/24 12:58 110/55 97 Intake and Output 03/19/24 03/20/24 03/20/24 22:59 06:59 14:59 Intake Total 1069.141 258.808 146.189 Output Total 1200 1660 530 Balance -130.859 -1401.192 -383.811 Intake: IV 140 180 100 Lactated Ringers 1,000 ml 140 180 100 @ 20 mls/hr IV .Q24H [facility] Rx#:[id number] Intake, IV Titration 29.141 78.808 46.189 Amount Phenylephrine 40 mg In 29.141 78.808 46.189 Sodium Chloride 0.9% 250 ml @ 0.5 MCG/KG/MIN 16. 418 mls/hr IV .[id number] [facility] Rx#:[id number] Oral 900 Output: Urine 1200 1660 530 Other: Voiding Method Bedside Commode Indwelling Catheter Indwelling Catheter Urinal Weight 89.8 kg ABP, PAP, CO, CI - Last 8 Hours Arterial Blood Pressure 134/47 Arterial Blood Pressure 156/51 Arterial Blood Pressure 136/46 Arterial Blood Pressure 126/45 Arterial Blood Pressure 128/46 Arterial Blood Pressure 132/45 Arterial Blood Pressure 161/50 Arterial Blood Pressure 136/44 Arterial Blood Pressure 150/51 Arterial Blood Pressure 144/49 Arterial Blood Pressure 143/44 Arterial Blood Pressure 146/47 Arterial Blood Pressure 140/48 Arterial Blood Pressure 147/48 Arterial Blood Pressure 161/63 Arterial Blood Pressure 157/58 Arterial Blood Pressure 160/60 Arterial Blood Pressure 161/61 Arterial Blood Pressure 166/63 Arterial Blood Pressure 157/62 Arterial Blood Pressure 153/63 Arterial Blood Pressure 142/52 Arterial Blood Pressure 136/51 Arterial Blood Pressure 138/51 Arterial Blood Pressure 144/54 Arterial Blood Pressure 137/51 Arterial Blood Pressure 135/51 Arterial Blood Pressure 177/72 Arterial Blood Pressure 161/58 Arterial Blood Pressure 150/53 Arterial Blood Pressure 141/53 Results CBC & Chem 7: 03/20/24 05:00 03/20/24 05:00 Labs: Abnormal Lab Results - Last 24 Hours (Table) 03/19/24 03/19/24 03/20/24 Range/Units 17:19 17:19 05:00 RBC 4.02 L 4.02 L (4.30-5.90) m/uL Hgb 12.4 L 12.3 L (13.0-17.5) gm/dL Hct 37.7 L 36.8 L (39.0-53.0) % Plt Count 136 L 146 L (150-450) k/uL Sodium 136 L (137-145) mmol/L Chloride 108 H (98-107) mmol/L BUN 26 H (9-20) mg/dL Glucose 140 H (74-99) mg/dL 03/20/24 Range/Units 05:00 RBC (4.30-5.90) m/uL Hgb (13.0-17.5) gm/dL Hct (39.0-53.0) % Plt Count (150-450) k/uL Sodium (137-145) mmol/L Chloride (98-107) mmol/L BUN 21 H (9-20) mg/dL Glucose 110 H (74-99) mg/dL
[2024-03-20 13:01] VITALS: TEMP 98.2
[2024-03-20 16:46] VITALS: PULSE 52
[2024-03-20 17:34] VITALS: RESP 17
--- NOTE | 2024-03-25 11:38 | CDI ---
Documentation Clarification Form Date: 03/25/2024 11:06:09 AM From: Marley Travis RN, CCDS Phone: [phone] Admit Date: 03/19/2024 08:02:00 AM Patient Name: Shaquille Barone Visit Number: [id number] Discharge Date: 03/20/2024 05:55:00 PM ATTENTION: The Clinical Documentation Specialists (CDI) and [facility] Coding Staff appreciate your assistance in clarifying documentation. Please respond to the clarification below the line at the bottom and electronically sign. The CDI & [facility] Coding staff will review the response and follow-up if needed. Please note: Queries are made part of the Legal Health Record. If you have any questions, please contact the author of this message via ITS. Dr. Melissa Li The patient had a right transcarotid artery stent insertion on 03/19 and did require medication for blood pressure control. Additional clarification is requested. Patients Admitting Diagnosis: Asymptomatic high-grade right internal carotid artery stenosis Post-Operative Diagnosis: same Procedure performed: Right transcarotid artery revascularization with stenting. Right common femoral vein central venous catheter placement under ultrasound guidance History/Risk Factors: carotid stenosis, PVD, CAD, HLD, HTN and OA. Presented for elective right transcarotid stent placement. Clinical Indicators: 03/20 IM consult: "Seen in the ICU, patient on Phenylephrine, slightly bradycardic. History of hypertension - currently bradycardic and hypotensive due to carotid stent placement." Discharge summary: "presented to the hospital on 03/19/2024 for a right transcarotid artery stent. He tolerated the procedure well and in the postoperative period did require medication for blood pressure control. He has been maintained in the ICU overnight." 03/19 BP's: 162/77-115/64-157/60-115/49; HR: 42-60 03/20 arterial BP's: 157/58-161/50-126/45-150/48; HR 48-58 Treatment: ICU monitoring; hold antihypertensives and beta-tammie; Phenylephrine drip titrated 03/19-03/20 What relationship, if any, exists between the hypotension and the procedure: [ ] Hypotension is a complication of the surgical procedure [ ] Hypotension is an expected outcome of the surgical procedure [ ] Hypotension is related to patients co-morbid conditions & not a complication of the procedure [ ] Other please specify ____ [ ] Unable to determine Pt was not hypotensive, needed meds for tight BP regulations post stent. ERNESTINAD
== END 2024-03-20 17:55 | disposition home or self-care (01) | DRG 36 ==
LOC: 2ORMAIN 08:02 → 2SICU 14:46
PROVIDERS: ADMIT Surgery; ATTEND Surgery
PROC: 037K34Z Dilation of Right Internal Carotid Artery with Drug-eluting Intraluminal Device, Percutaneous Approach (ICD-10-PCS; principal; 2024-03-19 10:30)
DX: I65.21 Occlusion and stenosis of right carotid artery (principal); F32.A Depression, unspecified; I10 Essential (primary) hypertension; E78.5 Hyperlipidemia, unspecified; I25.10 Atherosclerotic heart disease of native coronary artery without angina pectoris; F41.9 Anxiety disorder, unspecified; G62.9 Polyneuropathy, unspecified; H91.90 Unspecified hearing loss, unspecified ear; N40.1 Benign prostatic hyperplasia with lower urinary tract symptoms; R33.8 Other retention of urine; R00.1 Bradycardia, unspecified; Z79.02 Long term (current) use of antithrombotics/antiplatelets; Z95.1 Presence of aortocoronary bypass graft; Z79.82 Long term (current) use of aspirin; Z79.899 Other long term (current) drug therapy; Z87.891 Personal history of nicotine dependence
CPT/HCPCS: 37215; 80048; 85025; 86850; 86900; 86901

== ENCOUNTER 2024-04-07 12:30 | Emergency (ER) | payer OTHER ==
[2024-04-07 12:51] VITALS: RESP 18
--- NOTE | 2024-04-07 13:08 | ED ---
General Adult HPI - General Chief complaint: Skin/Abscess/Foreign Body Stated complaint: Insect bite on L hand Time Seen by Provider: 04/07/24 13:00 Source: patient, RN notes reviewed, old records reviewed Mode of arrival: ambulatory Limitations: no limitations - History of Present Illness Initial comments: 73-year-old male who presents to the emergency department stating that he was stung by something in the barn he does not think it was a bee. Patient states he had an EpiPen so he took it even though he was having no difficulty breathing or swallowing. Patient's only symptoms was swelling in the left hand. Patient states he was unaware that he was supposed to have waited until he had any problems breathing or swallowing. Patient states he has never had an anaphylactic reaction and he does not know exactly why he was given EpiPen's but has always had them since he was a child. Patient states she has had decreased swelling in his hands since he took the epi and now has got no symptoms at all. States if this occurred at 1130 - Related Data Home Medications Medication Instructions Recorded Confirmed Atorvastatin [Lipitor] 40 mg PO HS 06/14/21 03/20/24 Multivitamins, Thera [Multivitamin 1 tab PO DAILY 06/14/21 03/20/24 (formulary)] Clopidogrel [Plavix] 75 mg PO DAILY 03/17/24 03/20/24 Gabapentin [Neurontin] 300 mg PO HS 03/17/24 03/20/24 Aspirin EC [Ecotrin Low Dose] 81 mg PO DAILY 03/20/24 03/20/24 PARoxetine HCL [Paxil] 10 mg PO DAILY 03/20/24 03/20/24 Previous Rx's Medication Instructions Recorded Tamsulosin [Flomax] 0.4 mg PO DAILY #60 cap 03/20/24 predniSONE [Deltasone] 40 mg PO DAILY #8 tab 04/07/24 Allergies Allergy/AdvReac Type Severity Reaction Status Date / Time bee venom protein (honey bee) Allergy Swelling, Verified 03/17/24 13:30 RASH Review of Systems ROS Statement: Those systems with pertinent positive or pertinent negative responses have been documented in the HPI. ROS Other: All systems not noted in ROS Statement are negative. Past Medical History Past Medical History: Coronary Artery Disease (CAD), Hyperlipidemia, Hypertension, Osteoarthritis (OA), Prostate Disorder, Skin Disorder Additional Past Medical History / Comment(s): "Oct 28, 2023 elevated BP, went to ER, said to contact drugless physician." "Rt carotid 87% blocked."NECK PAIN arthritis, enlarged prostate. "I went to the ER (03-08-24) coughing up blood." "I had blood in my sputum.""The ER told me that it's a common occurabce when first starting Plavix." History of Any Multi-Drug Resistant Organisms: None Reported Past Surgical History: Coronary Bypass/CABG Additional Past Surgical History / Comment(s): CABG- quad bypass-1998, [facility] CATARACT SURGERY, umbilical hernia repair Past Anesthesia/Blood Transfusion Reactions: No Reported Reaction Additional Past Anesthesia/Blood Transfusion Reaction / Comment(s): No hx of blood transfusion. Past Psychological History: Anxiety Smoking Status: Former smoker Past Alcohol Use History: Rare Past Drug Use History: None Reported - Past Family History Sister(s) Family Medical History: Cancer Additional Family Medical History / Comment(s): lung cancer Brother(s) Family Medical History: Cancer Additional Family Medical History / Comment(s): prostate cancer General Exam - General Exam Comments Initial Comments: GENERAL: Patient is well-developed and well-nourished. Patient is nontoxic and well- hydrated and is in no acute distress. ENT: Neck is soft and supple. No significant lymphadenopathy is noted. Oropharynx is clear. Moist mucous membranes. Neck has full range of motion without eliciting any pain. EYES: The sclera were anicteric and conjunctiva were pink and moist. Extraocular movements were intact and pupils were equal round and reactive to light. Eyelids were unremarkable. PULMONARY: Unlabored respirations. Good breath sounds bilaterally. No audible rales rhonchi or wheezing was noted. CARDIOVASCULAR: There is a regular rate and rhythm without any murmurs gallops or rubs. SKIN: Posterior aspect of the left hand is mildly erythematous and slightly swollen NEUROLOGIC: Patient is alert and oriented x3. Cranial nerves II through XII are grossly intact. Motor and sensory are also intact. Normal speech, volume and content. Symmetrical smile. MUSCULOSKELETAL: Normal extremities with adequate strength and full range of motion. LYMPHATICS: No significant lymphadenopathy is noted PSYCHIATRIC: Normal psychiatric evaluation. Limitations: no limitations Course Vital Signs 04/07/24 12:49 Temperature 97.8 F Pulse Rate 71 Respiratory 18 Rate Blood Pressure 137/75 O2 Sat by Pulse 97 Oximetry Medical Decision Making - Medical Decision Making Was pt. sent in by a medical professional or institution ([facility], [facility], urgent care, hospital, or [facility]...) When possible be specific @ -No Did you speak to anyone other than the patient for history (EMS, parent, family, police, friend...)? What history was obtained from this source @ -No Did you review nursing and triage notes (agree or disagree)? Why? @ -I reviewed and agree with nursing and triage notes Were old charts reviewed (outside hosp., previous admission, EMS record, old EKG, old radiological studies, urgent care reports/EKG's, [facility] records)? Report findings @ -No old charts were reviewed Differential Diagnosis (chest pain, altered mental status, abdominal pain women, abdominal pain men, vaginal bleeding, weakness, fever, dyspnea, syncope, headache, dizziness, GI bleed, back pain, seizure, CVA, palpatations, mental health, musculoskeletal)? @ -Allergic reaction, anaphylactic reaction, insect bite this is not an all- inclusive list EKG interpreted by me (3pts min.). @ -As above X-rays interpreted by me (1pt min.). @ -None done CT interpreted by me (1pt min.). @ -None done U/S interpreted by me (1pt. min.). @ -None done What testing was considered but not performed or refused? (CT, X-rays, U/S, labs)? Why? @ -None What meds were considered but not given or refused? Why? @ -None Did you discuss the management of the patient with other professionals (professionals i.e. [facility], [facility], lab, RT, psych nurse, social service worker, hr advisor, teacher, community services officer, human services case manager)? Give summary @ -No Was smoking cessation discussed for >3mins.? @ -No Was critical care preformed (if so, how long)? @ -No Were there social determinants of health that impacted care today? How? (Homelessness, low income, unemployed, alcoholism, drug addiction, transportation, low edu. Level, literacy, decrease access to med. care, fdc, rehab)? @ -No Was there de-escalation of care discussed even if they declined (Discuss DNR or withdrawal of care, Hospice)? DNR status @ -No What co-morbidities impacted this encounter? (DM, HTN, Smoking, COPD, CAD, Cancer, CVA, ARF, Chemo, Hep., AIDS, mental health diagnosis, sleep apnea, morbid obesity)? @ -None Was patient admitted / discharged? Hospital course, mention meds given and route, prescriptions, significant lab abnormalities, going to OR and other pertinent info. @ -Patient only had some mild erythema and swelling to the left posterior hand. Patient had no difficulty breathing or difficulty swallowing. Patient states he was bit approximately a 1130 today. Patient states he has another EpiPen at home if he were to have more problems. Patient not take any Benadryl steroids Undiagnosed new problem with uncertain prognosis? @ -No Drug Therapy requiring intensive monitoring for toxicity (Heparin, Nitro, Insulin, Cardizem)? @ -No Were any procedures done? @ -No Diagnosis/symptom? @ -Allergic reaction Acute, or Chronic, or Acute on Chronic? @ -Default Uncomplicated (without systemic symptoms) or Complicated (systemic symptoms)? @ -Uncomplicated Side effects of treatment? @ -No Exacerbation, Progression, or Severe Exacerbation? @ -No Poses a threat to life or bodily function? How? (Chest pain, USA, MS, pneumonia, PE, COPD, DKA, ARF, appy, cholecystitis, CVA, Diverticulitis, Homicidal, Suicidal, threat to staff... and all critical care pts) @ -No Disposition Clinical Impression: Allergic reaction Disposition: HOME SELF-CARE Instructions (If sedation given, give patient instructions): General Allergic Reaction (ED) Additional Instructions: She did take Benadryl and/or prednisone as needed for any further symptoms. Patient should take epinephrine only if he has had any difficulty breathing or throat closing. Prescriptions: predniSONE [Deltasone] 40 mg PO DAILY #8 tab Is patient prescribed a controlled substance at d/c from ED?: No Referrals: [facility],Clinic [Primary Care Provider] - 1-2 days Time of Disposition: 13:12
[2024-04-07 13:38] VITALS: BP 131/80; PULSE 74; TEMP 98.1
== END 2024-04-07 13:24 | disposition home or self-care (01) ==
LOC: EC 12:30
DX: S60.562A Insect bite (nonvenomous) of left hand, initial encounter (principal); T44.5X5A Adverse effect of predominantly beta-adrenoreceptor agonists, initial encounter; Z87.891 Personal history of nicotine dependence; Z91.030 Bee allergy status; W57.XXXA Bitten or stung by nonvenomous insect and other nonvenomous arthropods, initial encounter
CPT/HCPCS: 99282

== ENCOUNTER → 2024-10-07 | Outpatient (CLI) | payer OTHER, MEDICARE ==
[2024-10-07 18:15] LABS: HCT 41.5 % (39.6-50.0); HGB 13.4 g/dL (13.0-17.0); MCH 29.7 pg (27.0-32.0); MCHC 32.3 g/dL (32.0-37.0); Mean Platelet Volume 9.7 FL (9.5-12.2); NRBC Per 100 WBC 0 X 10*3/uL (0.00-0.01); Platelet Count 146 X 10*3/uL (140-440); RBC 4.51 X 10*6/uL (4.40-5.60); RDW 12.6 % (11.5-14.5); WBC 6.25 X 10*3/uL (4.50-10.00)
[2024-10-07 18:46] LABS: BUN/Creat Ratio 18.33 Ratio (12.00-20.00); Carbon Dioxide 26.7 mmol/L (21.6-31.8); Chloride 104 mmol/L (96-109); Chol/HDL Ratio 2.65 Ratio; Glucose 94 mg/dL (70-110); LDL Cholesterol,Calculated 51.7 mg/dL (0.0-131.0); Potassium 4.4 mmol/L (3.5-5.5); Sodium 141 mmol/L (135-145)
[2024-10-07 18:47] LABS: ALT 16 U/L (10-49); AST 18 U/L (14-35); Albumin 4.5 g/dL (3.8-4.9); Albumin/Globulin Ratio 1.61 Ratio (1.60-3.17); Alkaline Phosphatase 96 U/L (41-126); Calcium 9.9 mg/dL (8.7-10.3); Globulin 2.8 g/dL (1.6-3.3); Total Bilirubin 0.7 mg/dL (0.3-1.2); Total Protein 7.3 g/dL (6.2-8.2)
[2024-10-07 18:57] LABS: NT-Pro-B-Type Natriuretic Pept 449 pg/mL (0-125)
== END | disposition home or self-care (01) ==
LOC: LABWHC1 12:40
PROVIDERS: ATTEND Student in an Organized Health Care Education/Training Program
DX: I13.0 Hypertensive heart and chronic kidney disease with heart failure and stage 1 through stage 4 chronic kidney disease, or unspecified chronic kidney disease (principal); I25.10 Atherosclerotic heart disease of native coronary artery without angina pectoris; I50.9 Heart failure, unspecified; E11.22 Type 2 diabetes mellitus with diabetic chronic kidney disease; N18.9 Chronic kidney disease, unspecified; E78.5 Hyperlipidemia, unspecified
CPT/HCPCS: 36415; 80053; 80061; 83036; 83880; 85027

== ENCOUNTER → 2024-10-22 | Outpatient (CLI) | payer OTHER, MEDICARE | END | disposition home or self-care (01) | LOC: LABWHC1 12:01 | PROVIDERS: ATTEND Urology | DX: R97.20 Elevated prostate specific antigen [PSA] (principal) | CPT/HCPCS: 36415; 84153 ==